=== PATIENT | female | born 1940 | race Caucasian/White ===

== ENCOUNTER 2018-07-28 10:01 | Emergency (ER) | payer MEDICARE, OTHER ==
[2018-07-28] MEDS ORDERED: Sodium Chloride 0.9% 10 ML Syringe FLUSH PRN (10:14)
[2018-07-28] MEDS ORDERED: Diltiazem 50 MG/10 ML SDV IVPUSH ONE ×2 (10:16→11:23)
[2018-07-28] MEDS ORDERED: Ondansetron 4 MG/2 ML SDV IVPUSH ONE (10:20)
[2018-07-28] MEDS: Sodium Chloride 0.9% 1,000 ML IV SCH ×2 (10:27→12:25)
[2018-07-28] MEDS ORDERED: cefTRIAXone 1 GM Vial IVPUSH ONE (11:15)
[2018-07-28 11:31] LABS: CHLORIDE,CL 93 mmol/L (98-107); SODIUM,NA 132 mmol/L (136-145)
--- NOTE | 2018-07-28 11:37 | CR ---
[id number] RAD/RAD Chest PA or AP 1V EXAM: RAD Chest PA or AP 1V INDICATION: ATRIAL FIBRILLATION. COMPARISON: None. DISCUSSION: Scarring in the bilateral lung bases. Thickening of the minor fissure on the right. Slightly elevated right hemidiaphragm. No evidence of pneumonia, effusion, edema, or pneumothorax. IMPRESSION: As above. Jomar Cintron MD 07/28/18 1134 Thank you for allowing us to participate in the care of your patient.
[2018-07-28 11:41] LABS: ANION GAP 15.3 mmol/L (10-20)
[2018-07-28] MEDS ORDERED: Piperacillin/Tazobactam 3.375 GM in Sodium Chloride 0.9% 100 ML IV ONE (12:03)
--- NOTE | 2018-07-28 12:12 | EDM.PDOC ---
ED HPI GENERAL MEDICAL PROBLEM - General Chief Complaint: Cardiovascular Problem Stated Complaint: nausea, fast heart rate Time Seen by Provider: 07/28/18 10:07 Source of Information: Reports: Patient, Provider History Limitations: Reports: No Limitations - History of Present Illness INITIAL COMMENTS - FREE TEXT/NARRATIVE: Patient's provider called from the clinic with report of irreglular tachycardia heart rate and nausea. Patient states she has been nauseated for the last several days. Denies heart history. Denies lung disease, diabetes, prior atrial fibrillation. She is not on any anticoagulation. She denies chest pain , SOB, headache, fever. Does endorse chills, nausea, and vomiting last night but not today. No swelling of extremities. Onset: Gradual Duration: Getting Worse Location: Reports: Abdomen, Generalized Severity: Mild - Related Data Allergies Allergy/AdvReac Type Severity Reaction Status Date / Time Horse/Equine Containing Allergy Cannot Verified 08/03/13 09:17 Products Remember Home Meds: Home Meds Divalproex Sodium 750 mg PO BEDTIME 08/03/13 [History] OLANZapine [ZyPREXA] 2.5 mg PO BEDTIME 08/03/13 [History] ED ROS GENERAL - Review of Systems Review Of Systems: See Below Constitutional: Reports: Chills HEENT: Reports: No Symptoms Respiratory: Reports: No Symptoms Cardiovascular: Reports: No Symptoms Endocrine: Reports: No Symptoms GI/Abdominal: Reports: Nausea, Vomiting : Reports: No Symptoms Musculoskeletal: Reports: No Symptoms Skin: Reports: No Symptoms Neurological: Reports: Weakness Psychiatric: Reports: No Symptoms Hematologic/Lymphatic: Reports: No Symptoms Immunologic: Reports: No Symptoms ED EXAM, GENERAL - Physical Exam Exam: See Below Exam Limited By: No Limitations General Appearance: Alert, WD/WN, Mild Distress Eye Exam: Bilateral Eye: EOMI, Normal Inspection, PERRL Ears: Normal TMs Nose: Normal Inspection, Normal Mucosa, No Blood Throat/Mouth: Normal Inspection, Normal Lips, Normal Teeth, Normal Gums, Normal Oropharynx, Normal Voice, No Airway Compromise Head: Atraumatic, Normocephalic Neck: Normal Inspection, Supple, Non-Tender, Full Range of Motion Respiratory/Chest: No Respiratory Distress, Lungs Clear, Normal Breath Sounds, No Accessory Muscle Use, Chest Non-Tender Cardiovascular: Irregularly Irregular Peripheral Pulses: 2+: Posterior Tibial (L), Posterior Tibial (R), Dorsalis Pedis (L), Dorsalis Pedis (R) GI/Abdominal: Normal Bowel Sounds, Soft, Non-Tender Extremities: Normal Inspection, Normal Range of Motion, Non-Tender, Normal Capillary Refill, No Pedal Edema Neurological: Alert, Oriented, CN II-XII Intact, Normal Cognition, Normal Gait, Normal Reflexes, No Motor/Sensory Deficits Psychiatric: Normal Affect, Normal Mood Skin Exam: Warm, Dry, Intact, Normal Color, No Rash EKG INTERPRETATION EKG Date: 07/28/18 Rhythm: A-Fib Rate (Beats/Min): 150 [place]: Normal P-Wave: Absent Course - Vital Signs Last Recorded V/S: Last Vital Signs Temp 37.3 C 07/28/18 11:45 Pulse 91 07/28/18 13:05 Resp 20 07/28/18 10:45 BP 93/61 07/28/18 13:05 Pulse Ox 94 L 07/28/18 13:05 - Orders/Labs/Meds Orders: Active Orders 24 hr Category Date Time Status Dietary Supplements [RC] BIDMEALS Care 07/28/18 11:15 Ordered EKG Documentation Completion [RC] STAT Care 07/28/18 10:14 Ordered Oxygen Therapy Adult [Oxygen Therapy, ED] [] Care 07/28/18 11:52 Ordered ASDIRECTED CULTURE BLOOD [BC] Stat Lab 07/28/18 10:14 Ordered CULTURE BLOOD [BC] Stat Lab 07/28/18 10:14 Ordered Blood Culture x2 Reflex Set [OM.PC] Stat Oth 07/28/18 10:14 Ordered Saline Lock Insert [OM.PC] Routine Oth 07/28/18 10:14 Ordered Labs: Laboratory Tests 07/28/18 07/28/18 07/28/18 Range/Units 10:47 10:47 10:47 WBC 16.7 H (4.0-10.0) x10^3/uL RBC 4.56 (4.00-5.50) x10^6/uL Hgb 16.1 H (12.0-16.0) g/dL Hct 45.1 (33.0-47.0) % MCV 98.9 H (78.0-93.0) fL MCH 35.3 H (26.0-32.0) pg MCHC 35.7 (32.0-36.0) g/dL RDW Coeff of Ching 12.5 (10.0-15.0) % Plt Count 232 (130-400) x10^3/uL Neut % (Auto) 80.8 H (50.0-80.0) % Lymph % (Auto) 8.7 L (25.0-50.0) % [place] % (Auto) 10.5 (2.0-11.0) % Eos % (Auto) 0.0 (0.0-4.0) % Baso % (Auto) 0.0 L (0.2-1.2) % PT 11.1 (9.6-11.4) SEC INR 1.1 L (2.0-3.5) Sodium 132 L (136-145) mmol/L Potassium 4.3 (3.5-5.1) mmol/L Chloride 93 L (98-107) mmol/L Carbon Dioxide 28 (21-32) mmol/L Anion Gap 15.3 (10-20) mmol/L BUN 26 H (7-18) mg/dL Creatinine 1.6 H (0.55-1.02) mg/dL Est Cr Clr Drug Dosing 25.43 mL/min Estimated GFR (MDRD) 31 Glucose 138 H (74-106) mg/dL Lactic Acid (0.4-2.0) mmol/L Calcium 9.6 (8.5-10.1) mg/dL Corrected Calcium 10.08 (8.5-10.1) mg/dL Magnesium (1.8-2.4) mg/dL Total Bilirubin 1.1 H (0.2-1.0) mg/dL AST 8 L (15-37) U/L ALT 15 (14-59) U/L Alkaline Phosphatase 58 (46-116) U/L Creatine Kinase 38 (26-192) U/L Troponin I < 0.017 (<=0.056) ng/mL NT-Pro-B Natriuret Pep 6803 H (<=450) pg/mL Total Protein 8.0 (6.4-8.2) g/dL Albumin 3.4 (3.4-5.0) g/dL Globulin 4.6 Albumin/Globulin Ratio 0.74 TSH, Ultra Sensitive 4.506 H (0.358-3.74) uIU/mL 07/28/18 07/28/18 Range/Units 10:47 10:47 WBC (4.0-10.0) x10^3/uL RBC (4.00-5.50) x10^6/uL Hgb (12.0-16.0) g/dL Hct (33.0-47.0) % MCV (78.0-93.0) fL MCH (26.0-32.0) pg MCHC (32.0-36.0) g/dL RDW Coeff of Ching (10.0-15.0) % Plt Count (130-400) x10^3/uL Neut % (Auto) (50.0-80.0) % Lymph % (Auto) (25.0-50.0) % [place] % (Auto) (2.0-11.0) % Eos % (Auto) (0.0-4.0) % Baso % (Auto) (0.2-1.2) % PT (9.6-11.4) SEC INR (2.0-3.5) Sodium (136-145) mmol/L Potassium (3.5-5.1) mmol/L Chloride (98-107) mmol/L Carbon Dioxide (21-32) mmol/L Anion Gap (10-20) mmol/L BUN (7-18) mg/dL Creatinine (0.55-1.02) mg/dL Est Cr Clr Drug Dosing mL/min Estimated GFR (MDRD) Glucose (74-106) mg/dL Lactic Acid 2.5 H* (0.4-2.0) mmol/L Calcium (8.5-10.1) mg/dL Corrected Calcium (8.5-10.1) mg/dL Magnesium 1.9 (1.8-2.4) mg/dL Total Bilirubin (0.2-1.0) mg/dL AST (15-37) U/L ALT (14-59) U/L Alkaline Phosphatase (46-116) U/L Creatine Kinase (26-192) U/L Troponin I (<=0.056) ng/mL NT-Pro-B Natriuret Pep (<=450) pg/mL Total Protein (6.4-8.2) g/dL Albumin (3.4-5.0) g/dL Globulin Albumin/Globulin Ratio TSH, Ultra Sensitive (0.358-3.74) uIU/mL Meds: Medications Discontinued Medications Generic Name Dose Route Start Last Admin Trade Name Freq PRN Reason Stop Dose Admin Ceftriaxone Sodium 1 gm 07/28/18 11:15 07/28/18 11:37 Rocephin IVPUSH 07/28/18 11:16 1 gm STAT ONE Administration Diltiazem HCl 20 mg 07/28/18 10:16 07/28/18 10:22 Cardizem IVPUSH 07/28/18 10:17 20 mg ONETIME ONE Administration Diltiazem HCl 10 mg 07/28/18 11:23 07/28/18 11:37 Cardizem IVPUSH 07/28/18 11:24 10 mg ONETIME ONE Administration Sodium Chloride 1,000 mls @ 999 mls/hr 07/28/18 10:15 07/28/18 12:25 Normal Saline IV 999 mls/hr ASDIRECTED JAMI Administration Piperacillin Sod/Tazobactam 100 mls @ 200 mls/hr 07/28/18 12:03 07/28/18 12: 23 Sod 3.375 gm/ Sodium Chloride IV 07/28/18 12:32 200 mls/hr STAT ONE Administration Amiodarone HCl/Dextrose 360 mg in 200 mls @ 33.333 mls/hr 07/28/18 12:15 12:24 Nexterone In Dextrose 360 Mg/200 Ml IV 33.333 mls/hr ASDIRECTED JAMI Administration Protocol Ondansetron HCl 4 mg 07/28/18 10:20 07/28/18 10:27 Zofran IVPUSH 07/28/18 10:21 4 mg ONETIME ONE Administration Sodium Chloride 10 ml 07/28/18 10:14 Saline Flush FLUSH ASDIRECTED PRN Keep Vein Open - Radiology Interpretation Free Text/Narrative:: No acute process on x-ray - Re-Assessments/Exams Free Text/Narrative Re-Assessment/Exam: 07/28/18 12:35 IV bolus of 20 mg cardizem given. Rate was dropped to 80's however, no conversion and pressure did drop to the 80's. IV bolus of 10 mg given additionally rate constant, pressures tolerated better with IV fluid repletion. Still no conversion to SR Will start IV amiodarone drip for transfer to [place]. Departure - Departure Time of Disposition: 13:04 Disposition: DC/Tfer to Acute Hospital 02 Reason for Transfer *Q: Other Condition: Fair Clinical Impression: Atrial fibrillation with RVR, Sepsis Referrals: Kallie Lobo PA-C [Primary Care Provider] - Forms: ED Department Discharge, Interfacility Transfer [facility] ED Communication - ED Communication Date/Time Date: 07/28/18 Time Called: 12:00 - Discussed Case With (1) Discussed Case With (1): Admitting Provider (Dr. Villaseñor called and given report. He has accepted care of patient.) - Problem List & Annotations (1) Atrial fibrillation with RVR SNOMED Code(s): 042041436416388 Code(s): I48.91 - UNSPECIFIED ATRIAL FIBRILLATION Status: Acute Priority : Medium Current Visit: Yes (2) Sepsis SNOMED Code(s): 13778361 Code(s): A41.9 - SEPSIS, UNSPECIFIED ORGANISM Status: Acute Priority: Medium Current Visit: Yes Qualifiers: Sepsis type: sepsis due to unspecified organism Qualified Code(s): A41.9 - Sepsis, unspecified organism - Problem List Review Problem List Initiated/Reviewed/Updated: Yes - My Orders Last 24 Hours: My Active Orders 07/28/18 10:14 EKG Documentation Completion [RC] STAT CULTURE BLOOD [BC] Stat CULTURE BLOOD [BC] Stat Blood Culture x2 Reflex Set [OM.PC] Stat Saline Lock Insert [OM.PC] Routine 07/28/18 11:15 Dietary Supplements [RC] BIDMEALS 07/28/18 11:52 Oxygen Therapy Adult [Oxygen Therapy, ED] [RC] ASDIRECTED - Assessment/Plan Last 24 Hours: My Active Orders 07/28/18 10:14 EKG Documentation Completion [RC] STAT CULTURE BLOOD [BC] Stat CULTURE BLOOD [BC] Stat Blood Culture x2 Reflex Set [OM.PC] Stat Saline Lock Insert [OM.PC] Routine 07/28/18 11:15 Dietary Supplements [RC] BIDMEALS 07/28/18 11:52 Oxygen Therapy Adult [Oxygen Therapy, ED] [RC] ASDIRECTED
== END 2018-07-28 13:04 | disposition short-term general hospital (02) ==
LOC: VM.ED 10:01
DX: A41.9 Sepsis, unspecified organism (principal); I48.91 Unspecified atrial fibrillation; Z91.09 Other allergy status, other than to drugs and biological substances
CPT/HCPCS: 36415; 71045; 80053; 82550; 83605; 83735; 83880; 84443; 84484; 85025; 85610; 87040; 93005; 96361; 96365; 96368; 96375; 96376; 99285; J0282; J0696; J2405; J2543; J3490; J7030; J7050; 93010; 99284-GF

== ENCOUNTER 2018-08-10 22:06 | Observation (INO) | payer MEDICARE, OTHER ==
[2018-08-10] MEDS ORDERED: GI Cocktail Oral Solution 30 ML PO ONE (22:30)
[2018-08-10] MEDS ORDERED: Metoprolol Tartrate 5 MG/5 ML SDV IVPUSH ONE (22:53)
[2018-08-10 23:20] LABS: CHLORIDE,CL 98 mmol/L (98-107); SODIUM,NA 135 mmol/L (136-145)
[2018-08-10 23:21] LABS: ANION GAP 14.8 mmol/L (10-20)
[2018-08-10] MEDS ORDERED: cefTRIAXone 2 GM Vial IVPUSH ONE (23:26)
--- NOTE | 2018-08-11 00:09 | EDM.PDOC ---
ED HPI GENERAL MEDICAL PROBLEM - General Chief Complaint: General Stated Complaint: throat/chest discomfort lying down Time Seen by Provider: 08/10/18 22:22 Source of Information: Reports: Patient History Limitations: Reports: No Limitations - History of Present Illness INITIAL COMMENTS - FREE TEXT/NARRATIVE: Pt. presents to ER with substernal chest discomfort, worse when she is lying flat. She recently has had some serious medical issues. 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 She was started on Eliquis and was placed on Toprol XL 25mg daily for rate control. Apparently her rate has been fairly well controlled just with the metoprolol. Pt. states that she started experiencing the chest discomfort eariler today. She mentioned it to home health who attributed the discomfort to GERD. Pt. states that she continued to be quite uncomfortable and decided to come to the ER. Pt. denies any jaw, arm, neck or back pain. Denies any palpitations. No lightheadedness. No nausea, vomiting, or diarrhea. Onset: Today Onset Date: 08/10/18 Duration: Constant Location: Reports: Chest Quality: Reports: Ache, Burning Severity: Moderate Worsens with: Reports: Movement Throat Pain Score (Numeric/FACES): 6 - Related Data Allergies Allergy/AdvReac Type Severity Reaction Status Date / Time Horse/Equine Containing Allergy Cannot Verified 08/10/18 22:09 Products Remember Home Meds: Home Meds Divalproex Sodium 500 mg PO BEDTIME 08/03/13 [History] OLANZapine [ZyPREXA] 2.5 mg PO BEDTIME 08/03/13 [History] Apixaban [Eliquis] 5 mg PO BID 08/10/18 [History] Ascorbate Calcium [Vitamin C] 500 mg PO DAILY 08/10/18 [History] Ca Carbonate/Vitamin D3/Vit K [Calcium + D Soft Chewable Tab] 1 each PO DAILY [History] Metoprolol Succinate [Toprol XL] 25 mg PO DAILY 08/10/18 [History] Pantoprazole [ProTONIX] 40 mg PO DAILY 08/10/18 [History] Selenium 200 mcg PO DAILY 08/10/18 [History] Terbinafine [LamISIL] 250 mg PO DAILY 08/10/18 [History] Vitamin E 400 unit PO DAILY 08/10/18 [History] Zinc Acetate [Galzin] 50 mg PO DAILY 08/10/18 [History] Past Medical History Cardiovascular History: Reports: Arrhythmia Psychiatric History: Reports: Other (See Below) Other Psychiatric History: schizoaffective disorder Social & Family History - Family History Family Medical History: Noncontributory - Tobacco Use Smoking Status *Q: Never Smoker - Caffeine Use Caffeine Use: Reports: None ED ROS GENERAL - Review of Systems Review Of Systems: See Below Constitutional: Reports: No Symptoms HEENT: Reports: No Symptoms Respiratory: Reports: No Symptoms Cardiovascular: Reports: Chest Pain Endocrine: Reports: No Symptoms GI/Abdominal: Reports: Other (see HPI. Is passing gas. No abdominal discomfort.) : Reports: No Symptoms Musculoskeletal: Reports: No Symptoms Skin: Reports: No Symptoms Neurological: Reports: No Symptoms Psychiatric: Reports: No Symptoms Hematologic/Lymphatic: Reports: Anemia Immunologic: Reports: No Symptoms ED EXAM, GENERAL - Physical Exam Exam: See Below Exam Limited By: No Limitations General Appearance: Alert, WD/WN, Anxious, Mild Distress Eye Exam: Bilateral Eye: EOMI, PERRL Throat/Mouth: Normal Inspection, Normal Lips, Normal Teeth, Normal Gums, Normal Oropharynx, Normal Voice, No Airway Compromise Head: Atraumatic, Normocephalic Neck: Normal Inspection, Supple Respiratory/Chest: No Respiratory Distress, Lungs Clear, Decreased Breath Sounds (mildly diminished in the bases) Cardiovascular: Normal Peripheral Pulses, Tachycardia, Irregularly Irregular Peripheral Pulses: 3+: Radial (L), Radial (R), Posterior Tibial (L), Posterior Tibial (R) GI/Abdominal: Normal Bowel Sounds, Soft, Non-Tender, No Organomegaly, No Distention, No Mass (Female) Exam: Deferred Rectal (Female) Exam: Deferred Back Exam: Normal Inspection, Full Range of Motion, NT Extremities: Normal Inspection, Normal Range of Motion, Non-Tender, Normal Capillary Refill, No Pedal Edema Neurological: Alert, Oriented, CN II-XII Intact, Normal Cognition, Normal Gait, Normal Reflexes, No Motor/Sensory Deficits Psychiatric: Normal Affect, Normal Mood Skin Exam: Warm, Dry, Intact, No Rash, Pallor Lymphatic: No Adenopathy EKG INTERPRETATION Rhythm: A-Fib (rate of 110-130) Course - Vital Signs Last Recorded V/S: Last Vital Signs Temp 37.6 C 08/10/18 22:09 Pulse 114 H 08/10/18 23:16 Resp 18 08/10/18 22:09 BP 129/74 08/10/18 23:16 Pulse Ox 93 L 08/10/18 22:09 - Orders/Labs/Meds Orders: Active Orders 24 hr Category Date Time Status Patient Status [ADT] Routine ADT 08/10/18 23:32 Active EKG Documentation Completion [RC] STAT Care 08/10/18 22:27 Active Chest 2V [CR] Stat Exams 08/10/18 22:27 Taken Labs: Laboratory Tests 08/10/18 08/10/18 08/10/18 Range/Units 22:49 22:49 22:49 WBC 12.1 H (4.0-10.0) x10^3/uL RBC 3.96 L (4.00-5.50) x10^6/uL Hgb 13.9 D (12.0-16.0) g/dL Hct 40.1 (33.0-47.0) % MCV 101.3 H (78.0-93.0) fL MCH 35.1 H (26.0-32.0) pg MCHC 34.7 (32.0-36.0) g/dL RDW Coeff of Ching 12.7 (10.0-15.0) % Plt Count 381 D (130-400) x10^3/uL Neut % (Auto) 73.9 (50.0-80.0) % Lymph % (Auto) 11.7 L (25.0-50.0) % [place] % (Auto) 14.0 H (2.0-11.0) % Eos % (Auto) 0.2 (0.0-4.0) % Baso % (Auto) 0.2 (0.2-1.2) % PT 10.7 (9.6-11.4) SEC INR 1.0 L (2.0-3.5) Sodium 135 L (136-145) mmol/L Potassium 4.8 (3.5-5.1) mmol/L Chloride 98 (98-107) mmol/L Carbon Dioxide 27 (21-32) mmol/L Anion Gap 14.8 (10-20) mmol/L BUN 14 (7-18) mg/dL Creatinine 0.9 (0.55-1.02) mg/dL Est Cr Clr Drug Dosing TNP Estimated GFR (MDRD) > 60 Glucose 143 H (74-106) mg/dL Lactic Acid (0.4-2.0) mmol/L Calcium 9.2 (8.5-10.1) mg/dL Corrected Calcium 9.84 (8.5-10.1) mg/dL Phosphorus 4.4 (2.6-4.7) mg/dL Magnesium 1.8 (1.8-2.4) mg/dL Total Bilirubin 0.4 (0.2-1.0) mg/dL AST 9 L (15-37) U/L ALT 19 (14-59) U/L Alkaline Phosphatase 74 (46-116) U/L Troponin I < 0.017 (<=0.056) ng/mL C-Reactive Protein 2.6 H (<=0.9) mg/dL Total Protein 7.0 (6.4-8.2) g/dL Albumin 3.2 L (3.4-5.0) g/dL Globulin 3.8 Albumin/Globulin Ratio 0.84 08/10/18 Range/Units 22:49 WBC (4.0-10.0) x10^3/uL RBC (4.00-5.50) x10^6/uL Hgb (12.0-16.0) g/dL Hct (33.0-47.0) % MCV (78.0-93.0) fL MCH (26.0-32.0) pg MCHC (32.0-36.0) g/dL RDW Coeff of Ching (10.0-15.0) % Plt Count (130-400) x10^3/uL Neut % (Auto) (50.0-80.0) % Lymph % (Auto) (25.0-50.0) % [place] % (Auto) (2.0-11.0) % Eos % (Auto) (0.0-4.0) % Baso % (Auto) (0.2-1.2) % PT (9.6-11.4) SEC INR (2.0-3.5) Sodium (136-145) mmol/L Potassium (3.5-5.1) mmol/L Chloride (98-107) mmol/L Carbon Dioxide (21-32) mmol/L Anion Gap (10-20) mmol/L BUN (7-18) mg/dL Creatinine (0.55-1.02) mg/dL Est Cr Clr Drug Dosing Estimated GFR (MDRD) Glucose (74-106) mg/dL Lactic Acid 1.8 (0.4-2.0) mmol/L Calcium (8.5-10.1) mg/dL Corrected Calcium (8.5-10.1) mg/dL Phosphorus (2.6-4.7) mg/dL Magnesium (1.8-2.4) mg/dL Total Bilirubin (0.2-1.0) mg/dL AST (15-37) U/L ALT (14-59) U/L Alkaline Phosphatase (46-116) U/L Troponin I (<=0.056) ng/mL C-Reactive Protein (<=0.9) mg/dL Total Protein (6.4-8.2) g/dL Albumin (3.4-5.0) g/dL Globulin Albumin/Globulin Ratio Meds: Medications Discontinued Medications Generic Name Dose Route Start Last Admin Trade Name Freq PRN Reason Stop Dose Admin Al Hydroxide/Mg Hydroxide 30 ml 08/10/18 22:30 08/10/18 22:39 Gi Cocktail PO 08/10/18 22:31 30 ml ONETIME ONE Administration Ceftriaxone Sodium 2 gm 08/10/18 23:26 08/10/18 23:39 Rocephin IVPUSH 08/10/18 23:27 2 gm STAT ONE Administration Metoprolol Tartrate 5 mg 08/10/18 22:53 08/10/18 23:16 Lopressor IVPUSH 08/10/18 22:54 5 mg ONETIME ONE Administration - Radiology Interpretation Free Text/Narrative:: Evidence of bronchitis as well as subsegmental atelectasis in L lower lobe, questionable early infiltrate. Departure - Departure Time of Disposition: 00:13 Disposition: Refer to Observation Clinical Impression: Atrial fibrillation with rapid ventricular response, Walking pneumonia - Discharge Information Referrals: Kallie Lobo PA-C [Primary Care Provider] - - Problem List Review Problem List Initiated/Reviewed/Updated: Yes - My Orders Last 24 Hours: My Active Orders 08/10/18 22:27 EKG Documentation Completion [RC] STAT Chest 2V [CR] Stat 08/10/18 23:32 Patient Status [ADT] Routine - Assessment/Plan Last 24 Hours: My Active Orders 08/10/18 22:27 EKG Documentation Completion [RC] STAT Chest 2V [CR] Stat 08/10/18 23:32 Patient Status [ADT] Routine Plan: Pt. was given 5 mg lopressor IV. Her heart rate decreased somewhat but continued to fluctuate. Pt. will be admitted observation. Will increased her Toprol XL and continue telemetry. Will repeat chest x-ray in AM. Her lung sounds were slightly diminished. She certainly could have an early infiltate given her recent past medical problems. She was started on Rocephin 2 gm IV in ER. Does not meet sepsis criteria. Pt. is a code 1.
[2018-08-11] MEDS ORDERED: Metoprolol Succinate 50 MG Tab.ER PO ONE (00:22)
[2018-08-11] MEDS ORDERED: Morphine 10 MG/ML Syringe IV STA (01:40)
--- NOTE | 2018-08-11 07:46 | CR ---
[id number] RAD/RAD Chest PA And Lateral EXAM: RAD Chest PA And Lateral CLINICAL DATA: SYNCOPE COMPARISON: CORRELATION IS MADE WITH THE EXAM OF JULY 28, 2018. FINDINGS: There is minimal pleural reaction at the lung bases. The lungs are otherwise clear but hyperaerated. The cardiomediastinal contour is stable. There is an old fracture of the right clavicle. IMPRESSION: AIRWAY DISEASE. Manan Banda MD 08/11/18 0744 Thank you for allowing us to participate in the care of your patient.
[2018-08-11] MEDS ORDERED: Calcium Carbonate/Vitamin D3 1250 MG-200 Unit Tab PO SCH (08:00)
[2018-08-11] MEDS ORDERED: Ascorbic Acid 500 MG Tab PO SCH (08:00)
[2018-08-11] MEDS ORDERED: Apixaban 2.5 MG Tab PO SCH (08:00)
[2018-08-11] MEDS ORDERED: Pantoprazole 40 MG Tab.CR PO SCH (08:00)
[2018-08-11] MEDS ORDERED: Vitamin E (dl-alpha-tocopherol acetate) 400 Unit Cap PO SCH (08:00)
[2018-08-11 09:12] LABS: CHLORIDE,CL 100 mmol/L (98-107); SODIUM,NA 135 mmol/L (136-145)
[2018-08-11 09:13] LABS: ANION GAP 11.5 mmol/L (10-20)
[2018-08-11] MEDS ORDERED: Divalproex Sodium Delayed-Release 250 MG Tab.CR PO SCH (20:00)
[2018-08-11] MEDS ORDERED: OLANZapine 2.5 MG Tab PO SCH (20:00)
--- NOTE | 2018-08-12 07:56 | PCM.DCSUM1 ---
Discharge Summary - Hospital Course Diagnosis: Stroke: No - Discharge Data Discharge Date: 08/11/18 Discharge Disposition: Home, Self-Care 01 Condition: Good - Discharge Plan *PRESCRIPTION DRUG MONITORING PROGRAM REVIEWED*: Yes *COPY OF PRESCRIPTION DRUG MONITORING REPORT IN PATIENT SCOTT: Yes Home Medications: Home Meds Divalproex Sodium 500 mg PO BEDTIME 08/03/13 [History] OLANZapine [ZyPREXA] 2.5 mg PO BEDTIME 08/03/13 [History] Apixaban [Eliquis] 5 mg PO BID 08/10/18 [History] Ascorbate Calcium [Vitamin C] 500 mg PO DAILY 08/10/18 [History] Ca Carbonate/Vitamin D3/Vit K [Calcium + D Soft Chewable Tab] 1 each PO DAILY [History] Pantoprazole [ProTONIX] 40 mg PO DAILY 08/10/18 [History] Selenium 200 mcg PO DAILY 08/10/18 [History] Terbinafine [LamISIL] 250 mg PO DAILY 08/10/18 [History] Vitamin E 400 unit PO DAILY 08/10/18 [History] Zinc Acetate [Galzin] 50 mg PO DAILY 08/10/18 [History] Forms: ED Department Discharge Referrals: Kallie Lobo PA-C [Primary Care Provider] - - Discharge Summary/Plan Comment DC Time >30 min.: Yes Discharge Summary/Plan Comment: Increase toprol xl to 50mg once daily Doxycycline 100mg twice daily Follow-up with PCP in near future Drink plenty of fluids Return to ER if chest pain, shortness of breath, or palpitations - General Info Functional Status: Reports: Pain Controlled - Review of Systems General: Reports: No Symptoms HEENT: Reports: No Symptoms Pulmonary: Reports: No Symptoms Cardiovascular: Reports: No Symptoms Gastrointestinal: Reports: No Symptoms Genitourinary: Reports: No Symptoms Musculoskeletal: Reports: No Symptoms Skin: Reports: No Symptoms Neurological: Reports: No Symptoms Psychiatric: Reports: No Symptoms - Patient Data Vitals - Most Recent: Last Vital Signs Temp 36.9 C 08/11/18 05:12 Pulse 73 08/11/18 05:12 Resp 18 08/11/18 05:12 BP 100/54 L 08/11/18 05:12 Pulse Ox 96 08/11/18 05:12 Weight - Most Recent: 76.657 kg Lab Results - Last 24 hrs: Laboratory Results - last 24 hr 08/11/18 08/11/18 08/11/18 Range/Units 08:40 08:40 08:40 WBC 10.3 H (4.0-10.0) x10^3/uL RBC 3.66 L (4.00-5.50) x10^6/uL Hgb 12.8 (12.0-16.0) g/dL Hct 37.5 (33.0-47.0) % MCV 102.5 H (78.0-93.0) fL MCH 35.0 H (26.0-32.0) pg MCHC 34.1 (32.0-36.0) g/dL RDW Coeff of Ching 12.8 (10.0-15.0) % Plt Count 361 (130-400) x10^3/uL Neut % (Auto) 72.3 (50.0-80.0) % Lymph % (Auto) 15.0 L (25.0-50.0) % [place] % (Auto) 12.4 H (2.0-11.0) % Eos % (Auto) 0.2 (0.0-4.0) % Baso % (Auto) 0.1 L (0.2-1.2) % PT 10.7 (9.6-11.4) SEC INR 1.0 L (2.0-3.5) Sodium 135 L (136-145) mmol/L Potassium 4.5 (3.5-5.1) mmol/L Chloride 100 (98-107) mmol/L Carbon Dioxide 28 (21-32) mmol/L Anion Gap 11.5 (10-20) mmol/L BUN 13 (7-18) mg/dL Creatinine 1.0 (0.55-1.02) mg/dL Est Cr Clr Drug Dosing 43.25 mL/min Estimated GFR (MDRD) 54 Glucose 176 H (74-106) mg/dL Calcium 8.7 (8.5-10.1) mg/dL Corrected Calcium 9.58 (8.5-10.1) mg/dL Total Bilirubin 0.5 (0.2-1.0) mg/dL AST 8 L (15-37) U/L ALT 16 (14-59) U/L Alkaline Phosphatase 53 (46-116) U/L Troponin I < 0.017 (<=0.056) ng/mL Total Protein 6.1 L (6.4-8.2) g/dL Albumin 2.9 L (3.4-5.0) g/dL Globulin 3.2 Albumin/Globulin Ratio 0.91 Med Orders - Current: Current Medications Discontinued Medications Al Hydroxide/Mg Hydroxide (Gi Cocktail) 30 ml PO ONETIME ONE Stop: 08/10/18 22:31 Last Admin: 08/10/18 22:39 Dose: 30 ml Apixaban (Eliquis) 5 mg PO BID [facility] Last Admin: 08/11/18 07:41 Dose: 5 mg Ascorbic Acid (Vitamin C) 500 mg PO DAILY [facility] Last Admin: 08/11/18 07:42 Dose: 500 mg Calcium Carbonate (Calcium Carbonate/Vitamin D 1250 Mg-200 Unit) 1 tab PO DAILY [facility] Last Admin: 08/11/18 07:41 Dose: 1 tab Ceftriaxone Sodium (Rocephin) 2 gm IVPUSH STAT ONE Stop: 08/10/18 23:27 Last Admin: 08/10/18 23:39 Dose: 2 gm Divalproex Sodium (Divalproex Sodium) 500 mg PO BEDTIME [facility] Metoprolol Succinate (Toprol Xl) 50 mg PO ONETIME ONE Stop: 08/11/18 00:23 Last Admin: 08/11/18 01:10 Dose: 50 mg Metoprolol Tartrate (Lopressor) 5 mg IVPUSH ONETIME ONE Stop: 08/10/18 22:54 Last Admin: 08/10/18 23:16 Dose: 5 mg Morphine Sulfate (Morphine) 4 mg IV ONETIME STA Stop: 08/11/18 01:41 Last Admin: 08/11/18 01:54 Dose: 4 mg Olanzapine (Zyprexa) 2.5 mg PO BEDTIME [facility] Pantoprazole Sodium (Protonix) 40 mg PO DAILY [facility] Last Admin: 08/11/18 07:42 Dose: 40 mg Vitamin E (Vitamin E) 400 units PO DAILY [facility] Last Admin: 08/11/18 07:42 Dose: 400 units - Exam General: Reports: Alert, Oriented HEENT: Reports: Pupils Equal, Pupils Reactive, EOMI, Mucous Membr. Moist/[place] Neck: Reports: Supple Lungs: Reports: Clear to Auscultation, Normal Respiratory Effort Cardiovascular: Reports: Regular Rate, Regular Rhythm GI/Abdominal Exam: Normal Bowel Sounds, Soft, Non-Tender, No Organomegaly, No Distention, No Abnormal Bruit, No Mass, Pelvis Stable Back Exam: Reports: Normal Inspection, Full Range of Motion Extremities: Normal Inspection, Normal Range of Motion, Non-Tender, No Pedal Edema, Normal Capillary Refill Skin: Reports: Warm, Dry, Intact Neurological: Reports: No New Focal Deficit
== END 2018-08-11 10:30 | disposition home or self-care (01) ==
LOC: VM.ED 22:06 → VM.MS 23:34
PROVIDERS: ADMIT Physician Assistant; ATTEND Physician Assistant
DX: I48.91 Unspecified atrial fibrillation (principal); Z79.899 Other long term (current) drug therapy
CPT/HCPCS: 36415; 71046; 80053; 83605; 83735; 84100; 84484; 85025; 85610; 86140; 93005; 96374; 96375; 99285; A9270-GY; G0378; J0696; J2270; J3490

== ENCOUNTER 2020-08-29 11:36 | Emergency (ER) | payer MEDICARE, OTHER ==
[2020-08-29 12:07] LABS: ANION GAP 10.7 mmol/L (5-15); CHLORIDE,CL 93 mmol/L (98-107); SODIUM,NA 131 mmol/L (136-145)
[2020-08-29] MEDS ORDERED: Sodium Chloride 0.9% 10 ML Syringe FLUSH PRN (12:07)
[2020-08-29] MEDS ORDERED: Ondansetron 4 MG/2 ML SDV IV ONE (12:08)
[2020-08-29] MEDS ORDERED: fentaNYL 50 MCG/ML SDV IVPUSH ONE (12:08)
[2020-08-29 12:11] LABS: PTT,PARTIAL THROMBOPLSTIN TIME 26.8 SEC (25.6-32.8)
--- NOTE | 2020-08-29 12:25 | EDM.PDOC ---
ED HPI GENERAL MEDICAL PROBLEM - General Stated Complaint: Stroke Code from Clinic Time Seen by Provider: 08/29/20 11:36 Source of Information: Reports: Patient, Family History Limitations: Reports: No Limitations - History of Present Illness INITIAL COMMENTS - FREE TEXT/NARRATIVE: Patient comes emergency department today from the [facility] for the concerns of a stroke. Stroke code was called prior to the patient's arrival once we are indicated from the clinic of their concerns of a stroke. According to the daughter as well as the patient this morning she woke up and she had no complaints. She was at the kitchen table at about 815 taking her pills. She then went to the bathroom she was brushing her teeth the daughter heard a loud noise. She went to check on her mother and found her on the floor. Patient states that she was just standing there brushing her teeth and suddenly she woke up on the floor. She complains of posterior head pain and low thoracic back pain. This happened about about 830 this morning. The patient had some brief. About 10 to 15 minutes of some speech changes and confusion. This improved and has completely resolved. She complained of posterior head pain and back pain. She went to the clinic for these concerns approximately 4 hours later and was sent to the emergency department with their concerns of a stroke code period. Upon arrival the patient immediately went to CT scanner and when she returned to the emergency department. She complains of posterior head pain. She complains of lower back pain. She relates that she had no symptoms prior to the fall in the bathroom. She had no weakness dizziness lightheadedness. No chest pain no palpitations. She does not recall the incident or the events immediately surrounding it. At this time she complains of posterior occipital head pain. No visual acuity changes. No paresthesias of her upper or lower extremities. No confusion. No change in the functionality of her upper or lower extremities. No chest pain no shortness of breath or difficulty breathing. No cough or congestion. No fever no chills. No abdominal pain nausea or vomiting. No hematuria dysuria or urinary frequency. No black or tarry stools. She has had no loss of bowel or bladder. NO Covid Symptoms no COvid exposure. She has not eaten today either. - Related Data Allergies Allergy/AdvReac Type Severity Reaction Status Date / Time Horse/Equine Containing Allergy Cannot Verified 02/06/19 22:09 Products Remember Home Meds: Home Meds Divalproex Sodium 500 mg PO BEDTIME 08/03/13 [History] OLANZapine [ZyPREXA] 2.5 mg PO BEDTIME 08/03/13 [History] Apixaban [Eliquis] 5 mg PO BID 08/10/18 [History] Selenium 200 mcg PO DAILY 08/10/18 [History] Vitamin E 400 unit PO DAILY 08/10/18 [History] Zinc Acetate [Galzin] 50 mg PO DAILY 08/10/18 [History] Acetaminophen/HYDROcodone [[place] 325-5 MG] 1 tab PO Q4H PRN #15 tablet 08/29/20 [Rx] Ascorbic Acid 500 mg PO DAILY 08/29/20 [History] Calcium Carb, Citrate/Vit D3 [Calcium + D3 ER Tablet] 1 tab PO DAILY 08/29/20 [History] Furosemide 20 mg PO DAILY 08/29/20 [History] Metoprolol Succinate [Toprol XL 50mg] 50 mg PO DAILY 08/29/20 [History] Past Medical History Cardiovascular History: Reports: Arrhythmia Psychiatric History: Reports: Other (See Below) Other Psychiatric History: schizoaffective disorder Social & Family History - Family History Family Medical History: No Pertinent Family History - Caffeine Use Caffeine Use: Reports: None ED ROS GENERAL - Review of Systems Review Of Systems: Comprehensive ROS is negative, except as noted in HPI. ED EXAM, NEURO - Physical Exam Exam: See Below Exam Limited By: No Limitations General Appearance: Alert, WD/WN, No Apparent Distress Eye Exam: Bilateral Eye: EOMI, PERRL Ears: Normal External Exam, Normal TMs Nose: Normal Inspection Throat/Mouth: Normal Inspection, Normal Lips, Normal Teeth Head Exam: Atraumatic, Normocephalic Neck: Normal Inspection, Supple, Non-Tender, Full Range of Motion. No: Tender Lateral, Tender Midline (Palpation on the posterior midline spine does not elicit any bony deformities or step-offs. She denies any neck pain. She is able to flex and extend without any pain or discomfort.) Respiratory/Chest: No Respiratory Distress, Lungs Clear, Normal Breath Sounds, No Accessory Muscle Use, Chest Non-Tender (There is no signs of trauma to the anterior thorax. No bruising swelling ecchymosis bony deformities flail segments or subcutaneous emphysema.) Cardiovascular: Normal Peripheral Pulses, Regular Rate, Rhythm, Bradycardia, Irregularly Irregular GI/Abdominal: Normal Bowel Sounds, Soft, Non-Tender, No Mass, Pelvis Stable (Female) Exam: Deferred Rectal (Female) Exam: Deferred Neurological: Alert, Normal Mood/Affect, Normal Dorsiflexion, CN II-XII Intact, Normal Plantar Flexion, Normal Reflexes, No Motor/Sensory Deficits, Oriented x 3, Other (NIH stroke scale of 0.) DTR: 2+: Bicep (R), Bicep (L), Patella (R), Patella (L), Achilles (R), Achilles (L) Back Exam: Paraspinal Tenderness (Similar paraspinous tenderness in the T11-T12 region. No other signs of trauma bruising swelling ecchymosis.), Vertebral Tenderness (There is vertebral tenderness in the area of T11-T12. There is no overt bony deformities or step-offs. The rest of the back is atraumatic.). No: CVA Tenderness (L), CVA Tenderness (R) Extremities: Normal Inspection, Normal Range of Motion, Non-Tender, No Pedal Edema, Normal Capillary Refill Psychiatric: Normal Affect, Normal Mood Skin Exam: Warm, Dry, Intact, Normal Color #1 Interpretation EKG Date: 08/29/20 Time: 11:53 Rhythm: A-Fib Rate (Beats/Min): 69 [place]: Normal P-Wave: Present QRS: Normal ST-T: Normal QT: Normal Comparison: No Change Course - Orders/Labs/Meds Orders: Active Orders 24 hr Category Date Time Status Peripheral IV Insertion Adult [OM.PC] Stat Oth 08/29/20 12:07 Ordered Labs: Laboratory Tests 08/29/20 08/29/20 08/29/20 Range/Units 11:46 11:48 11:49 WBC 6.9 (4.0-10.0) x10^3/uL RBC 4.53 (4.00-5.50) x10^6/uL Hgb 15.5 D (12.0-16.0) g/dL Hct 43.6 (33.0-47.0) % MCV 96.2 H D (78.0-93.0) fL MCH 34.2 H (26.0-32.0) pg MCHC 35.6 (32.0-36.0) g/dL RDW Coeff of Ching 12.1 (10.0-15.0) % Plt Count 193 D (130-400) x10^3/uL Neut % (Auto) 66.0 (50.0-80.0) % Lymph % (Auto) 23.4 L (25.0-50.0) % [place] % (Auto) 9.5 (2.0-11.0) % Eos % (Auto) 1.0 (0.0-4.0) % Baso % (Auto) 0.1 L (0.2-1.2) % PT (9.9-12.5) SEC INR (2.0-3.5) APTT (25.6-32.8) SEC Sodium (136-145) mmol/L Potassium (3.5-5.1) mmol/L Chloride (98-107) mmol/L Carbon Dioxide (21-32) mmol/L Anion Gap (5-15) mmol/L BUN (7-18) mg/dL Creatinine (0.55-1.02) mg/dL Est Cr Clr Drug Dosing Estimated GFR (MDRD) Glucose (74-106) mg/dL POC Glucose 81 (74-106) mg/dL Calcium (8.5-10.1) mg/dL POC Troponin I 0.00 (0.00-0.08) ng/mL 08/29/20 08/29/20 Range/Units 11:49 11:49 WBC (4.0-10.0) x10^3/uL RBC (4.00-5.50) x10^6/uL Hgb (12.0-16.0) g/dL Hct (33.0-47.0) % MCV (78.0-93.0) fL MCH (26.0-32.0) pg MCHC (32.0-36.0) g/dL RDW Coeff of Ching (10.0-15.0) % Plt Count (130-400) x10^3/uL Neut % (Auto) (50.0-80.0) % Lymph % (Auto) (25.0-50.0) % [place] % (Auto) (2.0-11.0) % Eos % (Auto) (0.0-4.0) % Baso % (Auto) (0.2-1.2) % PT 11.7 (9.9-12.5) SEC INR 1.0 L (2.0-3.5) APTT 26.8 (25.6-32.8) SEC Sodium 131 L (136-145) mmol/L Potassium 4.7 (3.5-5.1) mmol/L Chloride 93 L (98-107) mmol/L Carbon Dioxide 32 (21-32) mmol/L Anion Gap 10.7 (5-15) mmol/L BUN 11 (7-18) mg/dL Creatinine 0.9 (0.55-1.02) mg/dL Est Cr Clr Drug Dosing TNP Estimated GFR (MDRD) > 60 Glucose 90 (74-106) mg/dL POC Glucose (74-106) mg/dL Calcium 9.0 (8.5-10.1) mg/dL POC Troponin I (0.00-0.08) ng/mL Meds: Medications Discontinued Medications Generic Name Dose Route Start Last Admin Trade Name Ilda PRN Reason Stop Dose Admin Fentanyl 50 mcg 08/29/20 12:08 08/29/20 12:13 Fentanyl IVPUSH 08/29/20 12:09 50 mcg ONETIME ONE Administration Ondansetron HCl 4 mg 08/29/20 12:08 08/29/20 12:13 Zofran IV 08/29/20 12:09 4 mg ONETIME ONE Administration Sodium Chloride 10 ml 08/29/20 12:07 Saline Flush FLUSH ASDIRECTED PRN Keep Vein Open - Radiology Interpretation Free Text/Narrative:: CT of the head per radiology no acute findings. CT lumbar spine no fracture or subluxation moderate degenerative changes. Although when I reviewed the CT scans myself it appears at T12 there is a compression deformity. I called and spoke with the radiologist and he confirms that there is a 25% compression deformity of T12 age-indeterminate which zachary esponds to the site of pain. - Re-Assessments/Exams Free Text/Narrative Re-Assessment/Exam: 08/29/20 Code was activated prior to the patient's arrival and she went directly from the clinic to the CT scanner where a CT of the head stroke protocol was completed. At that time I received majority of her HPI and did a quick neurological exam and I really among concern for a stroke and this is most likely a vasovagal syncope type episode with a concussion that has resolved. I then elected to not complete a CTA head and neck. When she was back into the emergency department we continued with the stroke code. Her EKG shows atrial fibrillation at a controlled rate which she is chronically in and she is on some type of anticoagulant for. Laboratory evaluation was drawn. The patient is able to stand from the wheelchair and get into the cot she is quite uncomfortable with pain but she has no focal neurological deficits or difficulty with standing and ambulation's. She was given 50 mcg of fentanyl for pain and 4 mg of Zofran for prophylactic nausea. CBC with a normal white blood cell count at 6.9 hemoglobin 15.5 and a platelet count of 193. INR 1.0 PT 11.7. CMP with some mild low sodium at 131 normal potassium of 4.7 normal BUN and creatinine. Troponin is 0.00. He had very good pain relief with the fentanyl. Repeat primary and secondary surveys does not elicit any new findings. I called and spoke with Dr. Tejeda at [place] in [place] about the compression fracture at T12. His guidance at this time is that she does not need to see neurosurgery place her in a TLSO brace with a follow-up x-ray in 1 week and monthly lateral x-rays for following of this fracture. I am really unsure of what caused her syncopal episode. Her initial neur ological changes most likely due to concussion as she has some retrograde amnesia but her symptoms have completely resolved and I do not see any signs of a stroke at this time although we are about 4 hours out from the incident. Her blood sugar was only 81 unlikely that she was hypoglycemic. Although she has not ate this morning or drank much fluids. She does relate that she drinks very little water on the regular basis. She was unable to give a urine sample in the emergency department even after multiple glasses of water. She denies any urinary symptoms. Once again I am unsure of what caused her syncopal episode causing her to fall and end up with her T12 fracture. This could be due to vasovagal hypoglycemia dehydration. Also could be from cardiac dysrhythmia. We will place a Holter monitor in the clinic after discharge from the ER. Further evaluation and work-up for the syncope to be completed by primary care. We will discharge her home with hydrocodone for pain and guidance to get her TLSO brace tomorrow. Discharge directions as below are explained to the patient she was comfortable with this plan following an extended discussion about the acute findings today. Departure - Departure Time of Disposition: 14:53 Disposition: Home, Self-Care 01 Clinical Impression: Syncope and collapse Thoracic compression fracture Qualifiers: Encounter type: initial encounter Thoracic vertebra fracture level: T12 Qualified Code(s): S22.080A - Wedge compression fracture of T11-T12 vertebra, initial encounter for closed fracture Closed head injury with concussion Qualifiers: Encounter type: initial encounter Loss of consciousness presence/duration: with LOC of 30 min or less Qualified Code(s): S06.0X1A - Concussion with loss of consciousness of 30 minutes or less, initial encounter - Discharge Information Prescriptions: Acetaminophen/HYDROcodone [[place] 325-5 MG] 1 tab PO Q4H PRN #15 tablet PRN Reason: Pain Instructions: Thoracic Spine Fracture, [id number], Syncope, [id number], H ead Injury, Adult, [id number], Concussion, Adult, [id number] Referrals: Kallie Lobo PA-C [Primary Care Provider] - Additional Instructions: Tylenol and or Ibuprofen as needed for pain. Try to make sure and increase your fluid intake and eat regular meals. To [facility] today or tomorrow to get a TLSO brace. RX giv en to the patient. Wear the TLSO brace when up from bed for the next 3 moths. Don't have to wear when you are in bed but it more comfortable you can. Holter monitor completed to determine cause of syncope. To the clinic after ER visit for the Holter monitor to be placed. Continue with the previous medications. Ice to the sore areas. Make appointment with Kallie Tariq PA-C wednesday next week with a xray with the brace on for an hour and then monthly following. Also follow up with the Holter monitor results and further work up for syncope. If pain not controlled with above. [place] 1 tablet every 4 hrs with food as needed for pain. Caution sedation. Do not take with Tylenol as this medication has Tylenol in it as well. Return to the ED if new or worsening symptoms. Follow up with PCP as above. - My Orders Last 24 Hours: My Active Orders 08/29/20 12:07 Peripheral IV Insertion Adult [OM.PC] Stat - Assessment/Plan Last 24 Hours: My Active Orders 08/29/20 12:07 Peripheral IV Insertion Adult [OM.PC] Stat Assessment:: Syncope unknown cause. Holter monitor placed. T12 compression fracture from fall. TLSO Brace
--- NOTE | 2020-08-29 12:26 | CT ---
[id number] CT/CT Head WO IV EXAM: CT Head WO IV CLINICAL DATA: SYNCOPAL EPISODE, FALL. COMPARISON STUDY: None FINDINGS: No intracranial hemorrhage, extra-axial fluid collection, mass, or acute ischemia. Generalized parenchymal atrophy with scattered areas of nonspecific white matter disease, commonly seen as sequela of chronic microvascular ischemia. Left occipital scalp hematoma without underlying calvarial fracture. Paranasal sinuses and mastoid air cells are clear. IMPRESSION: No acute intracranial findings. Christiano Cm DO 08/29/20 [id number] Thank you for allowing us to participate in the care of your patient.
--- NOTE | 2020-08-29 12:38 | CT ---
[id number] CT/CT Lumbar Spine WO IV Exam: CT Lumbar Spine WO IV Clinical Data: TRAUMA COMPARISON: NO PREVIOUS SIMILAR EXAM IS AVAILABLE FINDINGS: No fracture or subluxation is seen L5-S1: There are degenerative facet changes There is moderate bilateral foraminal narrowing. L4-L5: There are degenerative facet changes There is mild foraminal narrowing. L3-L4: There are degenerative facet changes. L2-L3: There is mild degenerative change. L1-L2: There is loss of disc space with marginal osteophyte There are Tarlov cysts in the sacrum IMPRESSION: NO FRACTURE OR SUBLUXATION MODERATE DEGENERATIVE CHANGES Manan Banda MD 08/29/20 2021 Thank you for allowing us to participate in the care of your patient.
== END 2020-08-29 15:25 | disposition home or self-care (01) ==
LOC: VM.ED 11:36
DX: S06.0X1A Concussion with loss of consciousness of 30 minutes or less, initial encounter (principal); S22.089A Unspecified fracture of T11-T12 vertebra, initial encounter for closed fracture; I48.91 Unspecified atrial fibrillation; Z91.09 Other allergy status, other than to drugs and biological substances; Z79.01 Long term (current) use of anticoagulants; W17.89XA Other fall from one level to another, initial encounter
CPT/HCPCS: 70450; 72131; 80048; 82962; 84484; 85025; 85610; 85730; 93005; 93010; 96374; 96375; 99285; 99285-25; J2405; J3010

== ENCOUNTER 2021-04-05 16:56 | Observation (INO) | payer MEDICARE, OTHER ==
--- NOTE | 2021-04-05 17:32 | EDM.PDOC ---
ED HPI GENERAL MEDICAL PROBLEM - General Stated Complaint: COugh Time Seen by Provider: 04/05/21 17:20 Source of Information: Reports: Patient, Family History Limitations: Reports: No Limitations - History of Present Illness INITIAL COMMENTS - FREE TEXT/NARRATIVE: Patient is brought to the emergency department today by her daughter who is her primary caregiver with concerns of possible aspiration pneumonia. Primarily the HPI is obtained from the patient's daughter as the patient does not give much history. The patient lives at home with her daughter. The daughter states that yesterday while the patient was having lunch she started to kind of cough gag sputter following some food. Then today she developed a very harsh congested cough. The daughter notes that the patient is quite dyspneic and been coughing quite a bit. The patient denies any difficulty breathing or increased shortness of breath. She does relate that she has a cough. No fever no chills. No dizziness lightheadedness. Although she does complain of worsening generalized weakness. NO loss of taste or smell. No body aches. No pain in her chest. No nausea no vomiting. She does relate that she has urinary frequency as well as dysuria no flank pain. Patient does have some remote history of confusion with hyponatremia as well as hypokalemia according to the daughter. 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 - Related Data Allergies Allergy/AdvReac Type Severity Reaction Status Date / Time Horse/Equine Containing Allergy Cannot Verified 08/10/18 22:09 Products Remember Home Meds: Home Meds Divalproex Sodium 500 mg PO BEDTIME 08/03/13 [History] OLANZapine [ZyPREXA] 2.5 mg PO BEDTIME 08/03/13 [History] Apixaban [Eliquis] 5 mg PO BID 08/10/18 [History] Selenium 200 mcg PO DAILY 08/10/18 [History] Vitamin E 400 unit PO DAILY 08/10/18 [History] Zinc Acetate [Galzin] 50 mg PO DAILY 08/10/18 [History] Acetaminophen/HYDROcodone [[place] 325-5 MG] 1 tab PO Q4H PRN #15 tablet 08/29/20 [Rx] Ascorbic Acid 500 mg PO DAILY 08/29/20 [History] Calcium Carb, Citrate/Vit D3 [Calcium + D3 ER Tablet] 1 tab PO DAILY 08/29/20 [History] Furosemide 20 mg PO DAILY 08/29/20 [History] Metoprolol Succinate [Toprol XL 50mg] 50 mg PO DAILY 08/29/20 [History] Past Medical History Cardiovascular History: Reports: Arrhythmia Psychiatric History: Reports: Other (See Below) Other Psychiatric History: schizoaffective disorder Social & Family History - Family History Family Medical History: No Pertinent Family History - Caffeine Use Caffeine Use: Reports: None ED ROS GENERAL - Review of Systems Review Of Systems: Comprehensive ROS is negative, except as noted in HPI. ED EXAM, GENERAL - Physical Exam Exam: See Below Exam Limited By: No Limitations General Appearance: Alert, WD/WN Eye Exam: Bilateral Eye: EOMI Ears: Normal External Exam Nose: Normal Inspection Throat/Mouth: Normal Inspection Head: Atraumatic Neck: Normal Inspection Respiratory/Chest: No Respiratory Distress, Chest Non-Tender, Wheezing (Congested cough with some bilateral faint late expiratory wheezing.) Cardiovascular: Normal Peripheral Pulses, Irregularly Irregular GI/Abdominal: Normal Bowel Sounds, Soft (Female) Exam: Deferred Rectal (Female) Exam: Deferred Back Exam: Normal Inspection, Full Range of Motion Extremities: Normal Inspection, Normal Range of Motion, Normal Capillary Refill, Pedal Edema (1+ equal bilaterally) Neurological: Alert, Oriented, No Motor/Sensory Deficits, Slow to Respond (She does answer questions but she is very slow to respond. She answers them appropriately. It takes her quite a while to determine her answers.) Psychiatric: Normal Affect, Flat Affect Skin Exam: Warm, Dry, Intact Course - Vital Signs Last Recorded V/S: Last Vital Signs Temp 98.1 F 04/05/21 18:38 Pulse 88 04/05/21 18:38 Resp 18 04/05/21 18:38 BP Pulse Ox 93 L 04/05/21 18:38 - Orders/Labs/Meds Orders: Active Orders 24 hr Category Date Time Status CULTURE URINE [RM] Stat Lab 04/05/21 19:26 Received Sodium Chloride 0.9% [Normal Saline] 1,000 ml Med 04/05/21 18:45 Active IV ASDIRECTED Sodium Chloride 0.9% [Saline Flush] Med 04/05/21 18:36 Active 10 ml FLUSH ASDIRECTED PRN Peripheral IV Insertion Adult [OM.PC] Stat Oth 04/05/21 18:36 Ordered Medication Orders Sodium Chloride (Normal Saline) 1,000 mls @ 100 mls/hr IV ASDIRECTED JAMI Sodium Chloride (Sodium Chloride 0.9% 10 Ml Syringe) 10 ml FLUSH ASDIRECTED PRN PRN Reason: Keep Vein Open Labs: Laboratory Tests 04/05/21 04/05/21 04/05/21 Range/Units 17:45 17:45 17:45 WBC 5.4 (4.0-10.0) x10^3/uL RBC 4.20 (4.00-5.50) x10^6/uL Hgb 14.8 (12.0-16.0) g/dL Hct 40.3 (33.0-47.0) % MCV 96.0 H (78.0-93.0) fL MCH 35.2 H (26.0-32.0) pg MCHC 36.7 H (32.0-36.0) g/dL RDW Coeff of Ching 12.5 (10.0-15.0) % Plt Count 156 (130-400) x10^3/uL Immature Gran % (Auto) 0.20 (0.00-0.43) % Neut % (Auto) 54.3 (50.0-80.0) % Lymph % (Auto) 27.5 (25.0-50.0) % Hardin % (Auto) 17.4 H (2.0-11.0) % Eos % (Auto) 0.4 (0.0-4.0) % Baso % (Auto) 0.2 (0.2-1.2) % Neut # (Auto) 2.9 (1.8-7.7) x10^3/uL Lymph # (Auto) 1.5 (1.0-4.8) x10^3/uL Hardin # (Auto) 0.9 H (0.0-0.8) x10^3/uL Eos # (Auto) 0.0 (0.0-0.5) x10^3/uL Baso # (Auto) 0.0 (0.0-0.2) x10^3/uL Immature Gran # (Auto) 0.01 (0.00-0.07) x10^3/uL D-Dimer, Quantitative (<=0.58) mg/LFEU Sodium 125 L* (136-145) mmol/L Potassium 4.8 (3.5-5.1) mmol/L Chloride 91 L (98-107) mmol/L Carbon Dioxide 27 (21-32) mmol/L Anion Gap 11.8 (5-15) mmol/L BUN 9 (7-18) mg/dL Creatinine 0.8 (0.55-1.02) mg/dL Est Cr Clr Drug Dosing TNP Estimated GFR (MDRD) > 60 Glucose 106 H (70-99) mg/dL Lactic Acid 0.8 (0.4-2.0) mmol/L Calcium 7.8 L (8.5-10.1) mg/dL Corrected Calcium 8.5 (8.5-10.1) mg/dL Ferritin (8-252) ng/mL Total Bilirubin 0.5 (0.2-1.0) mg/dL AST 20 (15-37) U/L ALT 20 (14-59) U/L Alkaline Phosphatase 42 L (46-116) U/L Lactate Dehydrogenase (81-234) U/L C-Reactive Protein 2.2 H (<=0.9) mg/dL Total Protein 6.1 L (6.4-8.2) g/dL Albumin 3.4 (3.4-5.0) g/dL Globulin 2.7 Albumin/Globulin Ratio 1.26 Procalcitonin (0.1-0.50) ng/mL 04/05/21 04/05/21 04/05/21 Range/Units 17:45 17:45 17:45 WBC (4.0-10.0) x10^3/uL RBC (4.00-5.50) x10^6/uL Hgb (12.0-16.0) g/dL Hct (33.0-47.0) % MCV (78.0-93.0) fL MCH (26.0-32.0) pg MCHC (32.0-36.0) g/dL RDW Coeff of Ching (10.0-15.0) % Plt Count (130-400) x10^3/uL Immature Gran % (Auto) (0.00-0.43) % Neut % (Auto) (50.0-80.0) % Lymph % (Auto) (25.0-50.0) % Hardin % (Auto) (2.0-11.0) % Eos % (Auto) (0.0-4.0) % Baso % (Auto) (0.2-1.2) % Neut # (Auto) (1.8-7.7) x10^3/uL Lymph # (Auto) (1.0-4.8) x10^3/uL Hardin # (Auto) (0.0-0.8) x10^3/uL Eos # (Auto) (0.0-0.5) x10^3/uL Baso # (Auto) (0.0-0.2) x10^3/uL Immature Gran # (Auto) (0.00-0.07) x10^3/uL D-Dimer, Quantitative 0.27 (<=0.58) mg/LFEU Sodium (136-145) mmol/L Potassium (3.5-5.1) mmol/L Chloride (98-107) mmol/L Carbon Dioxide (21-32) mmol/L Anion Gap (5-15) mmol/L BUN (7-18) mg/dL Creatinine (0.55-1.02) mg/dL Est Cr Clr Drug Dosing Estimated GFR (MDRD) Glucose (70-99) mg/dL Lactic Acid (0.4-2.0) mmol/L Calcium (8.5-10.1) mg/dL Corrected Calcium (8.5-10.1) mg/dL Ferritin 384 H (8-252) ng/mL Total Bilirubin (0.2-1.0) mg/dL AST (15-37) U/L ALT (14-59) U/L Alkaline Phosphatase (46-116) U/L Lactate Dehydrogenase (81-234) U/L C-Reactive Protein (<=0.9) mg/dL Total Protein (6.4-8.2) g/dL Albumin (3.4-5.0) g/dL Globulin Albumin/Globulin Ratio Procalcitonin < 0.05 L (0.1-0.50) ng/mL 04/05/21 Range/Units 17:45 WBC (4.0-10.0) x10^3/uL RBC (4.00-5.50) x10^6/uL Hgb (12.0-16.0) g/dL Hct (33.0-47.0) % MCV (78.0-93.0) fL MCH (26.0-32.0) pg MCHC (32.0-36.0) g/dL RDW Coeff of Ching (10.0-15.0) % Plt Count (130-400) x10^3/uL Immature Gran % (Auto) (0.00-0.43) % Neut % (Auto) (50.0-80.0) % Lymph % (Auto) (25.0-50.0) % Hardin % (Auto) (2.0-11.0) % Eos % (Auto) (0.0-4.0) % Baso % (Auto) (0.2-1.2) % Neut # (Auto) (1.8-7.7) x10^3/uL Lymph # (Auto) (1.0-4.8) x10^3/uL Hardin # (Auto) (0.0-0.8) x10^3/uL Eos # (Auto) (0.0-0.5) x10^3/uL Baso # (Auto) (0.0-0.2) x10^3/uL Immature Gran # (Auto) (0.00-0.07) x10^3/uL D-Dimer, Quantitative (<=0.58) mg/LFEU Sodium (136-145) mmol/L Potassium (3.5-5.1) mmol/L Chloride (98-107) mmol/L Carbon Dioxide (21-32) mmol/L Anion Gap (5-15) mmol/L BUN (7-18) mg/dL Creatinine (0.55-1.02) mg/dL Est Cr Clr Drug Dosing Estimated GFR (MDRD) Glucose (70-99) mg/dL Lactic Acid (0.4-2.0) mmol/L Calcium (8.5-10.1) mg/dL Corrected Calcium (8.5-10.1) mg/dL Ferritin (8-252) ng/mL Total Bilirubin (0.2-1.0) mg/dL AST (15-37) U/L ALT (14-59) U/L Alkaline Phosphatase (46-116) U/L Lactate Dehydrogenase 176 (81-234) U/L C-Reactive Protein (<=0.9) mg/dL Total Protein (6.4-8.2) g/dL Albumin (3.4-5.0) g/dL Globulin Albumin/Globulin Ratio Procalcitonin (0.1-0.50) ng/mL Meds: Medications Generic Name Dose Route Start Last Admin Trade Name Freq PRN Reason Stop Dose Admin Sodium Chloride 1,000 mls @ 100 mls/hr 04/05/21 18:45 Normal Saline IV ASDIRECTED JAMI Sodium Chloride 10 ml 04/05/21 18:36 Sodium Chloride 0.9% 10 Ml Syringe FLUSH ASDIRECTED PRN Keep Vein Open - Radiology Interpretation Free Text/Narrative:: Chest x-ray per radiology is negative for pulmonary edema or pneumonia. - Re-Assessments/Exams Free Text/Narrative Re-Assessment/Exam: 04/05/21 18:35 Laboratory evaluation with a normal CBC. CMP with a sodium of 125, potassium 4.8, creatinine 0.8, BUN 9 glucose 106 Lactic acid normal. Reviewing her [facility] chart she does have a history of hyponatremia. She is taking oral salt tablets. This is the lowest documented sodium that she has had in the past. Her Covid is also positive. I am unsure if this is an acute positive as her only complaint is weakness and a very intermittent cough no other symptoms. Although she has not been sick in the last 3 months so this could be an early positive. I would like to admit the patient in the hospital for observation primarily for the hyponatremia. This could be the cause of her weakness or slowed mental state. Medications that she is on such as Depakote could be an aspect of her hyponatremia. We will also consider cortisol testing in the morning for adrenal insufficiency. This is a acute on chronic hyponatremia. Her calculated serum osmolality is 259. She already has controlled water intake at home. The patient is not hypoxic she is not short of breath she is not requiring any treatment for her Covid symptoms at this time. She is not a candidate for monoclonal antibody therapy as there is a severe shortage and she is a vaccinated patient who really is not overtly Covid symptomatic. I did discuss this case with our pharmacist as well and with the severe shortage we do not have any monoclonal antibodies. The main reason for hospitalization is due to her hyponatremia. And her generalized weakness. We will watch her closely for Covid concerns she will keep her in isolation. We will hydrate her with fluid over the night. The patient and the family are comfortable with this plan and their questions are answered. 04/05/21 20:07 Departure - Departure Time of Disposition: 19:00 Disposition: Refer to Observation Clinical Impression: Hyponatremia, Weakness generalized, COVID - Discharge Information - Problem List & Annotations (1) Schizoaffective disorder SNOMED Code(s): 70926554 Code(s): F25.9 - SCHIZOAFFECTIVE DISORDER, UNSPECIFIED Status: Acute Current Visit: Yes Annotation/Comment:: Chronic. No acute disorder continue home medication she is on olanzapine and Depakote (2) Atrial fibrillation with RVR SNOMED Code(s): 695583339280686 Code(s): I48.91 - UNSPECIFIED ATRIAL FIBRILLATION Status: Acute Priority: Medium Current Visit: No Annotation/Comment:: Chronic atrial fibrillation. She is on metoprolol and apixaban for anticoagulation. She will be on monitor tech. Rate is controlled at this time. (3) COVID SNOMED Code(s): 129376342 Code(s): U07.1 - COVID-19 Status: Acute Current Visit: Yes Annotation/Comment:: This is either a false positive where she was positive over 90 days ago or she is very early in the presentation of Covid. She is a vaccinated patient. Her only complaint at this time is of a cough. She is not hypoxic she is not short of breath. She does not meet criteria for remdesivir nor does she meet criteria for monoclonal antibody. She does not meet criteria for dexamethasone. We will continue to monitor closely. (4) Hyponatremia SNOMED Code(s): 34364139 Code(s): E87.1 - HYPO-OSMOLALITY AND HYPONATREMIA Status: Acute Current Visit: Yes Annotation/Comment:: Acute on chronic hyponatremia. Unknown cause. She is on Depakote which can cause some hyponatremia although she has been on Depakote for 8 years and her hyponatremia has developed in the last 3 months. Her water intake is controlled at home. We will do a morning cortisol test on her. And serum osmolality. Is a send out test. We will hydrate her gently over the night with some normal saline. I do not think she needs 3% at this time as she does not show any severe signs of acute neuro decompensation. We will monitor her sodium closely. (5) Weakness generalized SNOMED Code(s): 03709559 Code(s): R53.1 - WEAKNESS Status: Acute Current Visit: Yes Annotation/Comment:: Acute on chronic generalized weakness. This is most likely multifactorial exacerbated by the presence of hyponatremia. We will see if this improves after the improvement of her hyponatremia. PT OT when available although they are not here over the weekend - Problem List Review Problem List Initiated/Reviewed/Updated: Yes - My Orders Last 24 Hours: My Active Orders 04/05/21 18:36 Sodium Chloride 0.9% [Saline Flush] 10 ml FLUSH ASDIRECTED PRN Peripheral IV Insertion Adult [OM.PC] Stat 04/05/21 18:45 Sodium Chloride 0.9% [Normal Saline] 1,000 ml IV ASDIRECTED 04/05/21 19:26 CULTURE URINE [RM] Stat - Assessment/Plan Last 24 Hours: My Active Orders 04/05/21 18:36 Sodium Chloride 0.9% [Saline Flush] 10 ml FLUSH ASDIRECTED PRN Peripheral IV Insertion Adult [OM.PC] Stat 04/05/21 18:45 Sodium Chloride 0.9% [Normal Saline] 1,000 ml IV ASDIRECTED 04/05/21 19:26 CULTURE URINE [RM] Stat Assessment:: Assessment/plan. We will admit the patient into observation at this time. I do not anticipate more than a 24 may be 48 dependent on the patient response to the hyponatremia. She will be placed in droplet isolation due to the identification of Covid although she really does not have much Covid signs at this time other than a cough. Treatment as above as well as her diagnosis. Labs in the morning. Normal saline 100 mils an hour overnight. Pending serum osmolality as well as a.m. cortisol. VTE: Teds, chronic apixaban Sepsis: No signs of sepsis at this time. Continue to monitor by labs. CODE STATUS: Level 2 as verified with the patient daughter. Plan as above do not anticipate any severe problems while she is in the hospital though we will monitor closely for any of these.
--- NOTE | 2021-04-05 18:13 | CR ---
[id number] RAD/RAD Chest PA And Lateral EXAM: RAD Chest PA And Lateral CLINICAL DATA: COUGH POSSIBLE ASPIRATION PNEUMONIA COMPARISON: CORRELATION IS MADE WITH AUGUST 10, 2018 FINDINGS: The lungs are overall clear. The lungs appear hyperaerated The cardiomediastinal contour is prominent IMPRESSION: NO PNEUMONIA OR EDEMA Manan Banda MD 04/05/21 1813 Thank you for allowing us to participate in the care of your patient.
[2021-04-05 18:22] LABS: CHLORIDE,CL 91 mmol/L (98-107)
[2021-04-05 18:24] LABS: ANION GAP 11.8 mmol/L (5-15); SODIUM,NA 125 mmol/L (136-145)
[2021-04-05] MEDS ORDERED: Sodium Chloride 0.9% 10 ML Syringe FLUSH PRN (18:36)
[2021-04-05] MEDS: Sodium Chloride 0.9% 1,000 ML IV SCH (19:45)
[2021-04-06] MEDS: Sodium Chloride 0.9% 1,000 ML IV SCH (04:00)
[2021-04-06] MEDS ORDERED: [UNRECOGNIZED DRUG - OTHER] PO SCH (08:00)
[2021-04-06] MEDS ORDERED: CALCIUM CARB CITRATE PO SCH (08:00)
[2021-04-06] MEDS ORDERED: Vitamin E (dl-alpha-tocopherol acetate) 400 Unit Cap PO SCH (08:00)
[2021-04-06] MEDS ORDERED: Metoprolol Succinate 50 MG Tab.ER PO SCH (08:00)
[2021-04-06] MEDS ORDERED: VIT D3 PO SCH (08:00)
[2021-04-06] MEDS ORDERED: Rivaroxaban 10 MG Tab PO SCH (08:00)
[2021-04-06] MEDS ORDERED: Calcium Carbonate/Vitamin D3 1250 MG-5 MCG Tab PO SCH (08:00)
[2021-04-06] MEDS ORDERED: Ascorbic Acid 500 MG Tab PO SCH (08:00)
[2021-04-06] MEDS ORDERED: Non-Formulary Medication 1 Each (Apixaban [Eliquis] 5 MG Tablet) PO SCH (08:00)
[2021-04-06] MEDS ORDERED: Sodium Chloride 1 GM Tab PO SCH ×2 (08:00)
[2021-04-06 08:18] LABS: ANION GAP 13.1 mmol/L (5-15); CHLORIDE,CL 99 mmol/L (98-107); SODIUM,NA 133 mmol/L (136-145)
--- NOTE | 2021-04-06 16:01 | PCM.DCSUM1 ---
Discharge Summary - Discharge Data Discharge Date: 04/06/21 Discharge Disposition: Home, Self-Care 01 Condition: Stable - Referral to Home Health Primary Care Physician: Edith Lobo, DO - Discharge Diagnosis/Problem(s) (1) Schizoaffective disorder SNOMED Code(s): 77567159 ICD Code: F25.9 - SCHIZOAFFECTIVE DISORDER, UNSPECIFIED Status: Acute Problem Details: Chronic. No acute disorder continue home medication she is on olanzapine and Depakote (2) Atrial fibrillation with RVR SNOMED Code(s): 114460488403499 ICD Code: I48.91 - UNSPECIFIED ATRIAL FIBRILLATION Status: Acute Priority: Medium Problem Details: Chronic atrial fibrillation. She is on metoprolol and apixaban for anticoagulation. She will be on nurse staff. Rate is controlled at this time. (3) COVID SNOMED Code(s): 087176404 ICD Code: U07.1 - COVID-19 Status: Acute Problem Details: This is either a false positive where she was positive over 90 days ago or she is very early in the presentation of Covid. She is a vaccinated patient. Her only complaint at this time is of a cough. She is not hypoxic she is not short of breath. She does not meet criteria for remdesivir nor does she meet criteria for monoclonal antibody. She does not meet criteria for dexamethasone. She continues not to have any fever chills shortness of breath oxygen. This could be a false positive with previous exposure. We will have her monitor closely at home. (4) Hyponatremia SNOMED Code(s): 79776066 ICD Code: E87.1 - HYPO-OSMOLALITY AND HYPONATREMIA Status: Acute Problem Details: Patient received normal saline hydration throughout the night. Her sodium has improved from 1 25-1 33. Neurologically she is much improved. She is alert much more interactive there is no slow response. I am unsure of what is causing her chronic hyponatremia. She is on Depakote which can cause some hyponatremia although she has been on this for 8 years and her hyponatremia has just developed. I am still waiting for send out osmolality. We will have this followed in the primary care clinic. 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 This is most likely multifactorial exacerbated by the presence of hyponatremia. Her weakness is much improved. She is back to her baseline. She is able to ambulate get out of bed and on her own as she did at home. This could be due to the hyponatremia or her chronic weakness. She is much improved acutely. We will have her follow this in primary care clinic. - Patient Summary/Data Hospital Course: This patient was admitted into the hospital overnight for observation due to weakness hyponatremia slowed mentation and positive Covid test. Is positive Covid test could be a false positive for acute symptoms as she has no shortness of breath chest pain fatigue malaise myalgias. She has had symptoms consistent with Covid in the last 90 days. Although she is hyponatremic at 125. She has a history of hyponatremia. She is on 1 g of sodium chloride tablets daily. This hyponatremia has developed in the last 3 months. She has been on Depakote for the last 8 years although has not had problems with hyponatremia in the past. She has some generalized weakness which has been contributed to her hyponatremia as well as mental slowing which both have improved after her sodium being corrected overnight by normal saline with a sodium of 133 today. She is much improved today. We will increase her sodium tablets to 2 g daily. Have her follow-up primary care setting in the near future. Her and her daughter are comfortable with this plan and their questions were answered. - Patient Instructions Diet: Regular Diet as Tolerated Fluid Restriction: 1500 mL Other/Special Instructions: Home today. Increase your sodium to 2 grams daily. RX sent to your pharmacy. Keep your fluids at 1500mls a day. Continue all other previous therapies. As your urine sample does have some growth you are asymptomatic lets see what the cultures does when it is done growing. For the COVID. You most likely are positive and had it previously or just very mild case. Tylenol as needed for fever discomfort. Stay home quarantine for 14 days. Notify close contacts for the exposure to COVID. Vitamin C 1 gram twice daily. Vitamin D daily. Zinc 50mg daily. See Dr. Lobo later this week for recheck of your sodium and we will let you know what the results of your urine culture is. - Discharge Plan *PRESCRIPTION DRUG MONITORING PROGRAM REVIEWED*: Not Applicable *COPY OF PRESCRIPTION DRUG MONITORING REPORT IN PATIENT SCOTT: Not Applicable Prescriptions/Med Rec: Sodium Chloride 2 gm PO DAILY #60 tablet Home Medications: Home Meds Divalproex Sodium 500 mg PO BEDTIME 08/03/13 [History] OLANZapine [ZyPREXA] 2.5 mg PO BEDTIME 08/03/13 [History] Apixaban [Eliquis] 5 mg PO BID 08/10/18 [History] Vitamin E 400 unit PO DAILY 08/10/18 [History] Ascorbic Acid 500 mg PO DAILY 08/29/20 [History] Calcium Carb, Citrate/Vit D3 [Calcium + D3 ER Tablet] 1 tab PO DAILY 08/29/20 [History] Metoprolol Succinate [Toprol XL 50mg] 50 mg PO DAILY 08/29/20 [History] Sodium Chloride 2 gm PO DAILY #60 tablet 04/06/21 [Rx] Patient Handouts: Hyponatremia, [id number], COVID-19: What to Do If You Are Sick- [facility] (09/18/2020) Forms: ED Department Discharge Referrals: Edith Lobo DO [Primary Care Provider] - - Discharge Summary/Plan Comment DC Time >30 min.: No Total # of Minutes for Discharge Time: 20 - General Info Date of Service: 04/06/21 Admission Dx/Problem (Free Text: Weakness Hyponatremia acute on chronic. COVID positive although no symptoms at this time. Subjective Update: The patient is much better. Her thought process is improved. She is able to get up on her own and ambulate as she typically would at home. She is been eating and drinking. She does not relate that her mind feels slow and foggy anymore. She denies any confusion. She has no chest pain shortness of breath or difficulty breathing. No fever no chills. No nausea vomiting. She feels back to her baseline. She has no paresthesias of her upper or lower extremities. Functional Status: Reports: Pain Controlled, Tolerating Diet, Ambulating - Patient Data Vitals - Most Recent: Last Vital Signs Temp 97.5 F 04/06/21 14:00 Pulse 89 04/06/21 14:00 Resp 18 04/06/21 14:00 BP 113/79 04/06/21 14:00 Pulse Ox 92 L 04/06/21 14:00 Weight - Most Recent: 185 lb 3.2 oz I&O - Last 24 hours: Intake & Output 10/09/2204/06/21 04/06/21 06:59 14:59 22:59 Intake Total 1300 Output Total 700 Balance 600 Lab Results - Last 24 hrs: Laboratory Results - last 24 hr 04/05/21 04/05/21 04/05/21 Range/Units 17:45 17:45 17:45 WBC 5.4 (4.0-10.0) x10^3/uL RBC 4.20 (4.00-5.50) x10^6/uL Hgb 14.8 (12.0-16.0) g/dL Hct 40.3 (33.0-47.0) % MCV 96.0 H (78.0-93.0) fL MCH 35.2 H (26.0-32.0) pg MCHC 36.7 H (32.0-36.0) g/dL RDW Coeff of Ching 12.5 (10.0-15.0) % Plt Count 156 (130-400) x10^3/uL Immature Gran % (Auto) 0.20 (0.00-0.43) % Neut % (Auto) 54.3 (50.0-80.0) % Lymph % (Auto) 27.5 (25.0-50.0) % [place] % (Auto) 17.4 H (2.0-11.0) % Eos % (Auto) 0.4 (0.0-4.0) % Baso % (Auto) 0.2 (0.2-1.2) % Neut # (Auto) 2.9 (1.8-7.7) x10^3/uL Lymph # (Auto) 1.5 (1.0-4.8) x10^3/uL [place] # (Auto) 0.9 H (0.0-0.8) x10^3/uL Eos # (Auto) 0.0 (0.0-0.5) x10^3/uL Baso # (Auto) 0.0 (0.0-0.2) x10^3/uL Immature Gran # (Auto) 0.01 (0.00-0.07) x10^3/uL D-Dimer, Quantitative (<=0.58) mg/LFEU Sodium 125 L* (136-145) mmol/L Potassium 4.8 (3.5-5.1) mmol/L Chloride 91 L (98-107) mmol/L Carbon Dioxide 27 (21-32) mmol/L Anion Gap 11.8 (5-15) mmol/L BUN 9 (7-18) mg/dL Creatinine 0.8 (0.55-1.02) mg/dL Est Cr Clr Drug Dosing TNP Estimated GFR (MDRD) > 60 Glucose 106 H (70-99) mg/dL Lactic Acid 0.8 (0.4-2.0) mmol/L Calcium 7.8 L (8.5-10.1) mg/dL Corrected Calcium 8.5 (8.5-10.1) mg/dL Ferritin (8-252) ng/mL Total Bilirubin 0.5 (0.2-1.0) mg/dL AST 20 (15-37) U/L ALT 20 (14-59) U/L Alkaline Phosphatase 42 L (46-116) U/L Lactate Dehydrogenase (81-234) U/L C-Reactive Protein 2.2 H (<=0.9) mg/dL Total Protein 6.1 L (6.4-8.2) g/dL Albumin 3.4 (3.4-5.0) g/dL Globulin 2.7 Albumin/Globulin Ratio 1.26 Procalcitonin (0.1-0.50) ng/mL Urine Color (YELLOW) Urine Appearance (CLEAR) Urine pH (5.0-8.0) Ur Specific [place] Urine Protein (NEGATIVE) mg/dL Urine Glucose (UA) (NEGATIVE) mg/dL Urine Ketones (NEGATIVE) mg/dL Urine Occult Blood (NEGATIVE) Urine Nitrite (NEGATIVE) Urine Bilirubin (NEGATIVE) Urine Urobilinogen (0.2) EU/dL Ur Leukocyte Esterase (NEGATIVE) Urine RBC (NOT SEEN) /HPF Urine WBC (NOT SEEN) /HPF Ur Squamous Epith Cells (NOT SEEN) /HPF Urine Bacteria (NOT SEEN) /HPF Urine Mucus (NOT SEEN) /LPF SARS CoV-2 RNA Rapid GILBERTO (NEGATIVE) 04/05/21 04/05/21 04/05/21 Range/Units 17:45 17:45 17:45 WBC (4.0-10.0) x10^3/uL RBC (4.00-5.50) x10^6/uL Hgb (12.0-16.0) g/dL Hct (33.0-47.0) % MCV (78.0-93.0) fL MCH (26.0-32.0) pg MCHC (32.0-36.0) g/dL RDW Coeff of Ching (10.0-15.0) % Plt Count (130-400) x10^3/uL Immature Gran % (Auto) (0.00-0.43) % Neut % (Auto) (50.0-80.0) % Lymph % (Auto) (25.0-50.0) % [place] % (Auto) (2.0-11.0) % Eos % (Auto) (0.0-4.0) % Baso % (Auto) (0.2-1.2) % Neut # (Auto) (1.8-7.7) x10^3/uL Lymph # (Auto) (1.0-4.8) x10^3/uL [place] # (Auto) (0.0-0.8) x10^3/uL Eos # (Auto) (0.0-0.5) x10^3/uL Baso # (Auto) (0.0-0.2) x10^3/uL Immature Gran # (Auto) (0.00-0.07) x10^3/uL D-Dimer, Quantitative 0.27 (<=0.58) mg/LFEU Sodium (136-145) mmol/L Potassium (3.5-5.1) mmol/L Chloride (98-107) mmol/L Carbon Dioxide (21-32) mmol/L Anion Gap (5-15) mmol/L BUN (7-18) mg/dL Creatinine (0.55-1.02) mg/dL Est Cr Clr Drug Dosing Estimated GFR (MDRD) Glucose (70-99) mg/dL Lactic Acid (0.4-2.0) mmol/L Calcium (8.5-10.1) mg/dL Corrected Calcium (8.5-10.1) mg/dL Ferritin 384 H (8-252) ng/mL Total Bilirubin (0.2-1.0) mg/dL AST (15-37) U/L ALT (14-59) U/L Alkaline Phosphatase (46-116) U/L Lactate Dehydrogenase (81-234) U/L C-Reactive Protein (<=0.9) mg/dL Total Protein (6.4-8.2) g/dL Albumin (3.4-5.0) g/dL Globulin Albumin/Globulin Ratio Procalcitonin < 0.05 L (0.1-0.50) ng/mL Urine Color (YELLOW) Urine Appearance (CLEAR) Urine pH (5.0-8.0) Ur Specific [place] Urine Protein (NEGATIVE) mg/dL Urine Glucose (UA) (NEGATIVE) mg/dL Urine Ketones (NEGATIVE) mg/dL Urine Occult Blood (NEGATIVE) Urine Nitrite (NEGATIVE) Urine Bilirubin (NEGATIVE) Urine Urobilinogen (0.2) EU/dL Ur Leukocyte Esterase (NEGATIVE) Urine RBC (NOT SEEN) /HPF Urine WBC (NOT SEEN) /HPF Ur Squamous Epith Cells (NOT SEEN) /HPF Urine Bacteria (NOT SEEN) /HPF Urine Mucus (NOT SEEN) /LPF SARS CoV-2 RNA Rapid GILBERTO (NEGATIVE) 04/05/21 04/05/21 04/05/21 Range/Units 17:45 18:55 19:26 WBC (4.0-10.0) x10^3/uL RBC (4.00-5.50) x10^6/uL Hgb (12.0-16.0) g/dL Hct (33.0-47.0) % MCV (78.0-93.0) fL MCH (26.0-32.0) pg MCHC (32.0-36.0) g/dL RDW Coeff of Ching (10.0-15.0) % Plt Count (130-400) x10^3/uL Immature Gran % (Auto) (0.00-0.43) % Neut % (Auto) (50.0-80.0) % Lymph % (Auto) (25.0-50.0) % [place] % (Auto) (2.0-11.0) % Eos % (Auto) (0.0-4.0) % Baso % (Auto) (0.2-1.2) % Neut # (Auto) (1.8-7.7) x10^3/uL Lymph # (Auto) (1.0-4.8) x10^3/uL [place] # (Auto) (0.0-0.8) x10^3/uL Eos # (Auto) (0.0-0.5) x10^3/uL Baso # (Auto) (0.0-0.2) x10^3/uL Immature Gran # (Auto) (0.00-0.07) x10^3/uL D-Dimer, Quantitative (<=0.58) mg/LFEU Sodium (136-145) mmol/L Potassium (3.5-5.1) mmol/L Chloride (98-107) mmol/L Carbon Dioxide (21-32) mmol/L Anion Gap (5-15) mmol/L BUN (7-18) mg/dL Creatinine (0.55-1.02) mg/dL Est Cr Clr Drug Dosing Estimated GFR (MDRD) Glucose (70-99) mg/dL Lactic Acid (0.4-2.0) mmol/L Calcium (8.5-10.1) mg/dL Corrected Calcium (8.5-10.1) mg/dL Ferritin (8-252) ng/mL Total Bilirubin (0.2-1.0) mg/dL AST (15-37) U/L ALT (14-59) U/L Alkaline Phosphatase (46-116) U/L Lactate Dehydrogenase 176 (81-234) U/L C-Reactive Protein (<=0.9) mg/dL Total Protein (6.4-8.2) g/dL Albumin (3.4-5.0) g/dL Globulin Albumin/Globulin Ratio Procalcitonin (0.1-0.50) ng/mL Urine Color Yellow (YELLOW) Urine Appearance Clear (CLEAR) Urine pH 7.0 (5.0-8.0) Ur Specific [place] 1.020 Urine Protein Negative (NEGATIVE) mg/dL Urine Glucose (UA) Negative (NEGATIVE) mg/dL Urine Ketones Negative (NEGATIVE) mg/dL Urine Occult Blood Negative (NEGATIVE) Urine Nitrite Negative (NEGATIVE) Urine Bilirubin Negative (NEGATIVE) Urine Urobilinogen 0.2 (0.2) EU/dL Ur Leukocyte Esterase Small H (NEGATIVE) Urine RBC 0-5 (NOT SEEN) /HPF Urine WBC 0-5 (NOT SEEN) /HPF Ur Squamous Epith Cells Occasional H (NOT SEEN) /HPF Urine Bacteria Occasional H (NOT SEEN) /HPF Urine Mucus Not seen (NOT SEEN) /LPF SARS CoV-2 RNA Rapid GILBERTO Positive H (NEGATIVE) 04/06/21 04/06/21 04/06/21 Range/Units 07:40 07:40 07:40 WBC 4.0 (4.0-10.0) x10^3/uL RBC 4.14 (4.00-5.50) x10^6/uL Hgb 14.4 (12.0-16.0) g/dL Hct 40.2 (33.0-47.0) % MCV 97.1 H (78.0-93.0) fL MCH 34.8 H (26.0-32.0) pg MCHC 35.8 (32.0-36.0) g/dL RDW Coeff of Ching 12.6 (10.0-15.0) % Plt Count 136 (130-400) x10^3/uL Immature Gran % (Auto) 0.30 (0.00-0.43) % Neut % (Auto) 46.2 L (50.0-80.0) % Lymph % (Auto) 35.3 (25.0-50.0) % [place] % (Auto) 17.9 H (2.0-11.0) % Eos % (Auto) 0.0 (0.0-4.0) % Baso % (Auto) 0.3 (0.2-1.2) % Neut # (Auto) 1.8 (1.8-7.7) x10^3/uL Lymph # (Auto) 1.4 (1.0-4.8) x10^3/uL [place] # (Auto) 0.7 (0.0-0.8) x10^3/uL Eos # (Auto) 0.0 (0.0-0.5) x10^3/uL Baso # (Auto) 0.0 (0.0-0.2) x10^3/uL Immature Gran # (Auto) 0.01 (0.00-0.07) x10^3/uL D-Dimer, Quantitative 0.31 (<=0.58) mg/LFEU Sodium 133 L (136-145) mmol/L Potassium 4.1 (3.5-5.1) mmol/L Chloride 99 (98-107) mmol/L Carbon Dioxide 25 (21-32) mmol/L Anion Gap 13.1 (5-15) mmol/L BUN 7 (7-18) mg/dL Creatinine 0.6 (0.55-1.02) mg/dL Est Cr Clr Drug Dosing 64.58 Estimated GFR (MDRD) > 60 Glucose 95 (70-99) mg/dL Lactic Acid (0.4-2.0) mmol/L Calcium 7.9 L (8.5-10.1) mg/dL Corrected Calcium (8.5-10.1) mg/dL Ferritin (8-252) ng/mL Total Bilirubin (0.2-1.0) mg/dL AST (15-37) U/L ALT (14-59) U/L Alkaline Phosphatase (46-116) U/L Lactate Dehydrogenase 152 (81-234) U/L C-Reactive Protein (<=0.9) mg/dL Total Protein (6.4-8.2) g/dL Albumin (3.4-5.0) g/dL Globulin Albumin/Globulin Ratio Procalcitonin (0.1-0.50) ng/mL Urine Color (YELLOW) Urine Appearance (CLEAR) Urine pH (5.0-8.0) Ur Specific [place] Urine Protein (NEGATIVE) mg/dL Urine Glucose (UA) (NEGATIVE) mg/dL Urine Ketones (NEGATIVE) mg/dL Urine Occult Blood (NEGATIVE) Urine Nitrite (NEGATIVE) Urine Bilirubin (NEGATIVE) Urine Urobilinogen (0.2) EU/dL Ur Leukocyte Esterase (NEGATIVE) Urine RBC (NOT SEEN) /HPF Urine WBC (NOT SEEN) /HPF Ur Squamous Epith Cells (NOT SEEN) /HPF Urine Bacteria (NOT SEEN) /HPF Urine Mucus (NOT SEEN) /LPF SARS CoV-2 RNA Rapid GILBERTO (NEGATIVE) 04/06/21 Range/Units 07:40 WBC (4.0-10.0) x10^3/uL RBC (4.00-5.50) x10^6/uL Hgb (12.0-16.0) g/dL Hct (33.0-47.0) % MCV (78.0-93.0) fL MCH (26.0-32.0) pg MCHC (32.0-36.0) g/dL RDW Coeff of Ching (10.0-15.0) % Plt Count (130-400) x10^3/uL Immature Gran % (Auto) (0.00-0.43) % Neut % (Auto) (50.0-80.0) % Lymph % (Auto) (25.0-50.0) % [place] % (Auto) (2.0-11.0) % Eos % (Auto) (0.0-4.0) % Baso % (Auto) (0.2-1.2) % Neut # (Auto) (1.8-7.7) x10^3/uL Lymph # (Auto) (1.0-4.8) x10^3/uL [place] # (Auto) (0.0-0.8) x10^3/uL Eos # (Auto) (0.0-0.5) x10^3/uL Baso # (Auto) (0.0-0.2) x10^3/uL Immature Gran # (Auto) (0.00-0.07) x10^3/uL D-Dimer, Quantitative (<=0.58) mg/LFEU Sodium (136-145) mmol/L Potassium (3.5-5.1) mmol/L Chloride (98-107) mmol/L Carbon Dioxide (21-32) mmol/L Anion Gap (5-15) mmol/L BUN (7-18) mg/dL Creatinine (0.55-1.02) mg/dL Est Cr Clr Drug Dosing Estimated GFR (MDRD) Glucose (70-99) mg/dL Lactic Acid (0.4-2.0) mmol/L Calcium (8.5-10.1) mg/dL Corrected Calcium (8.5-10.1) mg/dL Ferritin 386 H (8-252) ng/mL Total Bilirubin (0.2-1.0) mg/dL AST (15-37) U/L ALT (14-59) U/L Alkaline Phosphatase (46-116) U/L Lactate Dehydrogenase (81-234) U/L C-Reactive Protein (<=0.9) mg/dL Total Protein (6.4-8.2) g/dL Albumin (3.4-5.0) g/dL Globulin Albumin/Globulin Ratio Procalcitonin (0.1-0.50) ng/mL Urine Color (YELLOW) Urine Appearance (CLEAR) Urine pH (5.0-8.0) Ur Specific [place] Urine Protein (NEGATIVE) mg/dL Urine Glucose (UA) (NEGATIVE) mg/dL Urine Ketones (NEGATIVE) mg/dL Urine Occult Blood (NEGATIVE) Urine Nitrite (NEGATIVE) Urine Bilirubin (NEGATIVE) Urine Urobilinogen (0.2) EU/dL Ur Leukocyte Esterase (NEGATIVE) Urine RBC (NOT SEEN) /HPF Urine WBC (NOT SEEN) /HPF Ur Squamous Epith Cells (NOT SEEN) /HPF Urine Bacteria (NOT SEEN) /HPF Urine Mucus (NOT SEEN) /LPF SARS CoV-2 RNA Rapid GILBERTO (NEGATIVE) BLAKE Results - Last 24 hrs: Microbiology 04/05/21 19:26 Urine Culture - Preliminary Urine, Voided Gram Negative Rods Med Orders - Current: Current Medications Ascorbic Acid (Ascorbic Acid 500 Mg Tab) 500 mg PO DAILY [facility] Last Admin: 04/06/21 08:23 Dose: 500 mg Documented by: Calcium Carbonate (Calcium Carbonate/Vitamin D3 1250 Mg-5 Mcg Tab) 1 tab PO DAILY [facility] Last Admin: 04/06/21 08:24 Dose: 1 tab Documented by: Divalproex Sodium (Divalproex Sodium Delayed-Release 250 Mg Tab.Cr) 500 mg PO BEDTIME [facility] Metoprolol Succinate (Metoprolol Succinate 50 Mg Tab.Er) 50 mg PO DAILY [facility] Last Admin: 04/06/21 08:24 Dose: 50 mg Documented by: Olanzapine (Olanzapine 2.5 Mg Tab) 2.5 mg PO BEDTIME [facility] Rivaroxaban (Rivaroxaban 10 Mg Tab) 20 mg PO DAILY [facility] Last Admin: 04/06/21 08:23 Dose: 20 mg Documented by: Sodium Chloride (Sodium Chloride 0.9% 10 Ml Syringe) 10 ml FLUSH ASDIRECTED PRN PRN Reason: Keep Vein Open Sodium Chloride (Sodium Chloride 1 Gm Tab) 2 gm PO DAILY [facility] Last Admin: 04/06/21 08:23 Dose: 2 gm Documented by: Vitamin E (Vitamin E (Qu-Xidgl-Ozhvzbcbkk Acetate) 400 Unit Cap) 400 units PO DAILY [facility] Last Admin: 04/06/21 08:23 Dose: 400 units Documented by: Discontinued Medications Sodium Chloride (Normal Saline) 1,000 mls @ 100 mls/hr IV ASDIRECTED [facility] Last Admin: 04/06/21 04:00 Dose: 100 mls/hr Documented by: Sodium Chloride (Sodium Chloride 1 Gm Tab) 1 gm PO DAILY [facility] Comments:: This patient is much more interactive than she was when I saw her in the emergency department yesterday. She was very slow to answer questions they were appropriate but she appeared to be much slower to respond. She has much personality today she is smiling she is happy she is without complaints she appears much different than she did yesterday when I saw her in the emergency department. She has had no SOB cough congestion or fevers. Denies any mylagias arthralgias malaise or fatigyue. - Exam General: Reports: Alert, Oriented HEENT: Reports: Pupils Equal, Pupils Reactive, EOMI Neck: Reports: Supple Lungs: Reports: Clear to Auscultation, Normal Respiratory Effort Cardiovascular: Reports: Regular Rate, Regular Rhythm GI/Abdominal Exam: Normal Bowel Sounds, Soft, Non-Tender Back Exam: Reports: Normal Inspection Extremities: Normal Range of Motion, Normal Capillary Refill, Pedal Edema (1+ bilateral not much more than yesterday) Skin: Reports: Warm, Dry, Intact Neurological: Reports: No New Focal Deficit Psy/Mental Status: Reports: Alert, Normal Affect, Normal Mood
[2021-04-06] MEDS ORDERED: OLANZapine 2.5 MG Tab PO SCH (20:00)
[2021-04-06] MEDS ORDERED: Divalproex Sodium Delayed-Release 250 MG Tab.CR PO SCH (20:00)
== END 2021-04-06 17:20 | disposition home or self-care (01) ==
LOC: VM.ED 16:56 → VM.MS 18:37
PROVIDERS: ADMIT Nurse Practitioner Family; ATTEND Nurse Practitioner Family
DX: U07.1 COVID-19 (principal); R05.9 Cough, unspecified; F25.9 Schizoaffective disorder, unspecified; I48.91 Unspecified atrial fibrillation; E87.1 Hypo-osmolality and hyponatremia; R53.1 Weakness; Z79.899 Other long term (current) drug therapy
CPT/HCPCS: 36415; 71046; 80048; 80053; 81001; 82533; 82728; 83605; 83615; 83930; 84145; 85025; 85379; 86140; 87086; 87088; 87186; 99217; 99220; 99285-25; A9270-GY; G0378; J7030; U0002

== ENCOUNTER 2024-04-26 15:31 | Emergency (ER) | payer MEDICARE, OTHER ==
[2024-04-26] MEDS ORDERED: Sodium Chloride 0.9% 10 ML Syringe FLUSH PRN (15:58)
[2024-04-26 16:17] LABS: BASOPHILS PERCENT AUTO 0.1 % (0.2-1.2); EOSINOPHILS ABSOLUTE AUTO 0.1 x10^3/uL (0.0-0.5); EOSINOPHILS PERCENT AUTO 1.2 % (0.0-4.0); HEMATOCRIT 43.4 % (33.0-47.0); IMMATURE GRAN ABSOLUTE AUTO 0.01 x10^3/uL (0.00-0.07); LYMPHOCYTES PERCENT AUTO 26.6 % (25.0-50.0); MEAN CORPUSCULAR HEMOGLOBIN 34.8 pg (26.0-32.0); MEAN CORPUSCULAR HGB CONC 34.6 g/dL (32.0-36.0); MEAN CORPUSCULAR VOLUME 100.7 fL (78.0-93.0); MONOCYTES ABSOLUTE AUTO 0.6 x10^3/uL (0.0-0.8); MONOCYTES PERCENT AUTO 7.7 % (2.0-11.0); NEUTROPHILS ABSOLUTE AUTO 4.7 x10^3/uL (1.8-7.7); NEUTROPHILS PERCENT AUTO 64.3 % (50.0-80.0); PLATELET COUNT,PLT 216 x10^3/uL (130-400); RED BLOOD CELL COUNT 4.31 x10^6/uL (4.00-5.50); WHITE BLOOD CELL COUNT,WBC 7.4 x10^3/uL (4.0-10.0)
[2024-04-26 16:40] LABS: A/G RATIO 1.03; ALANINE AMINOTRANSFERASE,ALT 18 U/L (14-59); ALBUMIN 3.3 g/dL (3.4-5.0); ALKALINE PHOSPHATASE 71 U/L (46-116); ANION GAP 12.9 mmol/L (5-15); ASPARTATE AMNIOTRANSFERASE,AST 18 U/L (15-37); BILIRUBIN TOTAL 0.6 mg/dL (0.2-1.0); BLOOD UREA NITROGEN,BUN 14 mg/dL (7-18); CALCIUM 8.8 mg/dL (8.5-10.1); CARBON DIOXIDE,CO2 30 mmol/L (21-32); CHLORIDE,CL 99 mmol/L (98-107); CREATININE 0.9 mg/dL (0.55-1.02); EST CRCL DRUG DOSING (CG) 39.18 mL/min; ESTIMATED GFR 63 mL/min (>=60); GLUCOSE RANDOM 142 mg/dL (70-99); POTASSIUM,K 4.9 mmol/L (3.5-5.1); PROTEIN TOTAL,TP 6.5 g/dL (6.4-8.2); SODIUM,NA 137 mmol/L (136-145)
== END 2024-04-26 17:10 | disposition home or self-care (01) ==
LOC: VM.ED 15:31
DX: S00.03XA Contusion of scalp, initial encounter (principal); R55 Syncope and collapse; Z91.048 Other nonmedicinal substance allergy status; Z86.16 Personal history of COVID-19; Z79.01 Long term (current) use of anticoagulants; Z79.899 Other long term (current) drug therapy; X58.XXXA Exposure to other specified factors, initial encounter
CPT/HCPCS: 36415; 70450; 80053; 84484; 85025; 93005; 93010; 99284